=== PATIENT | female | born 1950 | race Caucasian/White ===

== ENCOUNTER → 2017-08-11 11:00 | Outpatient (CLI) | payer MEDICARE, SELFPAY ==
--- NOTE | 2017-08-11 | DI.MG.S_ITS ---
BILATERAL DIGITAL SCREENING MAMMOGRAM 3D/2D WITH CAD: 08/11/2017 CLINICAL: Routine screening. Family history of breast cancer. Comparison is made to exams dated: 11/26/2015 mammogram, 06/08/2011 mammogram, and 03/02/2010 mammogram - [facility]. There are scattered fibroglandular elements in both breasts. Current study was also evaluated with a Computer Aided Detection (CAD) system. No significant masses, calcifications, or other findings are seen in either breast. There has been no significant interval change. IMPRESSION: NEGATIVE There is no mammographic evidence of malignancy. A 1 year screening mammogram is recommended. This exam was interpreted at Station ID: [id number]. NOTE: For mammograms, a report in lay terms will be sent to the patient. Approximately 15% of breast malignancies will not be visualized mammographically. In the management of a palpable breast mass, a negative mammogram must not discourage biopsy of a clinically suspicious lesion. Electronically Signed By: Duke gallardo/kristen:08/11/2017 17:18:31 letter sent: Normal Exam ACR BI-RADS Category 1: Negative 3341F
== END ==
PROVIDERS: PCP Family Medicine; Visit Provider Family Medicine
DX: Z12.31 Encounter for screening mammogram for malignant neoplasm of breast (principal); Z80.3 Family history of malignant neoplasm of breast
CPT/HCPCS: 77063; 77067

== ENCOUNTER → 2017-09-13 10:36 | Outpatient (CLI) | payer MEDICARE, SELFPAY ==
--- NOTE | 2017-09-13 | DI.RAD.S_ITS ---
PROCEDURE: XR KNEE RT 3V INDICATIONS: BILATERAL KNEE PAIN TECHNIQUE: 3 views of the knee were acquired. COMPARISON: [facility], CR, XR KNEE LT 3V, 09/13/2017, 10:27. FINDINGS: Bones: No fractures or dislocations. No suspicious bony lesions. There is moderate medial and patellofemoral compartment narrowing. Prominent periventricular osteophytes are present at the knee. No erosions are present. This appears slightly more prominent when compared to the left side. Soft tissues: Moderate joint effusion. No suspicious soft tissue calcifications. IMPRESSION: Moderate effusion with medial and patellofemoral compartment narrowing consistent with arthritis. Dictated by: Laurie Bunch M.D. on 09/13/2017 at 17:21 Approved by: Laurie Bunch M.D. on 09/13/2017 at 17:22
--- NOTE | 2017-09-13 | DI.RAD.S_ITS ---
PROCEDURE: XR KNEE LT 3V INDICATIONS: BILATERAL KNEE PAIN TECHNIQUE: 3 views of the knee were acquired. COMPARISON: [facility], CR, XR KNEE RT 3V, 09/13/2017, 10:27. FINDINGS: Bones: No fractures or dislocations. No suspicious bony lesions. There is mild to moderate medial and patellofemoral compartment narrowing with periventricular osteophytes. This is overall less prominent when compared to the right. Soft tissues: Moderate joint effusion. No suspicious soft tissue calcifications. IMPRESSION: Moderate effusion with mild to moderate medial and patellofemoral compartment narrowing consistent with arthritis. Dictated by: Laurie Bunch M.D. on 09/13/2017 at 17:22 Approved by: Laurie Bunch M.D. on 09/13/2017 at 17:23
== END ==
PROVIDERS: PCP Family Medicine; Visit Provider Family Medicine
DX: M17.0 Bilateral primary osteoarthritis of knee (principal); M25.462 Effusion, left knee; M25.461 Effusion, right knee; M25.561 Pain in right knee; M25.562 Pain in left knee
CPT/HCPCS: 73562

== ENCOUNTER → 2019-03-23 16:17 | Outpatient (CLI) | payer MEDICARE, SELFPAY ==
--- NOTE | 2019-03-23 | DI.MG.S_ITS ---
BILATERAL DIGITAL SCREENING MAMMOGRAM 3D/2D WITH CAD: 03/23/2019 CLINICAL: Routine screening. Family history of breast cancer. Comparison is made to exams dated: 08/11/2017 mammogram, 11/26/2015 mammogram, and 06/08/2011 mammogram - [facility]. There are scattered fibroglandular elements in both breasts. Current study was also evaluated with a Computer Aided Detection (CAD) system. No significant masses, calcifications, or other findings are seen in either breast. There has been no significant interval change. IMPRESSION: NEGATIVE There is no mammographic evidence of malignancy. A 1 year screening mammogram is recommended. This exam was interpreted at Station ID: [id number]. NOTE: For mammograms, a report in lay terms will be sent to the patient. Approximately 15% of breast malignancies will not be visualized mammographically. In the management of a palpable breast mass, a negative mammogram must not discourage biopsy of a clinically suspicious lesion. Electronically Signed By: Duke gallardo/kristen:03/23/2019 17:10:43 letter sent: Normal Exam ACR BI-RADS Category 1: Negative 3341F
== END ==
PROVIDERS: PCP Family Medicine; Visit Provider Family Medicine
DX: Z12.31 Encounter for screening mammogram for malignant neoplasm of breast (principal); Z80.3 Family history of malignant neoplasm of breast
CPT/HCPCS: 77063; 77067

== ENCOUNTER → 2019-04-02 14:06 | Outpatient (CLI) | payer MEDICARE, SELFPAY | PROVIDERS: PCP Family Medicine; Referring Provider Family Medicine; Visit Provider Family Medicine | DX: Z78.0 Asymptomatic menopausal state (principal); Z90.722 Acquired absence of ovaries, bilateral | CPT/HCPCS: 77080 ==

== ENCOUNTER → 2020-03-21 14:15 | Outpatient (CLI) | payer MEDICARE, SELFPAY ==
[2020-03-21] MEDS: COVID-19 VACC #1, MRNA(MOD) 100 MCG/0.5 ML VIAL IM (14:26)
== END ==
PROVIDERS: PCP Family Medicine; Visit Provider Internal Medicine
DX: Z23 Encounter for immunization (principal)
CPT/HCPCS: 0011A; 91301

== ENCOUNTER → 2020-04-18 14:06 | Outpatient (CLI) | payer MEDICARE, SELFPAY ==
[2020-04-18] MEDS: COVID-19 VACC #2, MRNA(MOD) 100 MCG/0.5 ML VIAL IM (14:12)
== END ==
PROVIDERS: PCP Family Medicine; Visit Provider Internal Medicine
DX: Z23 Encounter for immunization (principal)
CPT/HCPCS: 0012A; 91301

== ENCOUNTER → 2020-08-01 16:43 | Outpatient (CLI) | payer MEDICARE, SELFPAY ==
--- NOTE | 2020-08-01 16:46 | DI.MG.S_ITS ---
BILATERAL DIGITAL SCREENING MAMMOGRAM 3D/2D WITH CAD: 08/01/2020 CLINICAL: Routine screening. Family history of breast cancer. Comparison is made to exams dated: 03/23/2019 mammogram, 08/11/2017 mammogram, and 11/26/2015 mammogram - [facility]. There are scattered fibroglandular elements in both breasts. Current study was also evaluated with a Computer Aided Detection (CAD) system. No significant masses, calcifications, or other findings are seen in either breast. There has been no significant interval change. IMPRESSION: NEGATIVE There is no mammographic evidence of malignancy. A 1 year screening mammogram is recommended. This exam was interpreted at Station ID: [id number]. NOTE: For mammograms, a report in lay terms will be sent to the patient. Approximately 15% of breast malignancies will not be visualized mammographically. In the management of a palpable breast mass, a negative mammogram must not discourage biopsy of a clinically suspicious lesion. Electronically Signed By: Ulises shepherd/kristen:08/01/2020 17:37:31 letter sent: Normal Exam ACR BI-RADS Category 1: Negative 3341F
== END ==
PROVIDERS: PCP Family Medicine; Referring Provider Family Medicine; Visit Provider Family Medicine
DX: Z12.31 Encounter for screening mammogram for malignant neoplasm of breast (principal); Z80.3 Family history of malignant neoplasm of breast
CPT/HCPCS: 77063; 77067

== ENCOUNTER 2021-01-08 09:45 | Outpatient (RCR) | payer MEDICARE, SELFPAY ==
--- NOTE | 2020-10-20 15:14 | PT.OIE ---
Current Diagnoses Unilateral primary osteoarthritis, right knee (10/20/20) Visit Care Team Role Provider Type Keeley Erickson PA-C Referring Provider Non-Staff Specialty: General Surgery Address: [address] [facility], [place], [address] Email: Annabel Fields MD Family Provider Physician Primary Care Provider Specialty: Family Practice Address: [address] [place] [address], [facility] [place], [address] Email: [email or web address] Attending Provider Specialty: Address: Phone: Fax: Email: Physical Therapy Initial Evaluation PT-OP-A Visit Information Start: 10/20/20 13:48 Freq: Status: Active Protocol: Document 10/20/20 14:43 HH (Rec: 10/20/20 15:13 HH [email or web address]) Out-Patient Physical Therapy Visit Information Visit Information Visit Type Initial Evaluation Visit Note attended session Medial knee compartment replacement 10/13/20 Visit Start Time 13:00 Visit Stop Time 13:45 Total Visit Minutes 45 Visit Number 03/11 Number of WAITER/WAITRESS DINING CAR Visits 0 Evaluation Information Evaluation Date 10/20/20 PT-OP-B Current Condition Start: 10/20/20 13:48 Freq: Status: Active Protocol: Document 10/20/20 14:43 HH (Rec: 10/20/20 15:13 HH [email or web address]) Current Condition History of Current Condition Onset Date 10/13/20 Current Complaints unicompartmental R knee replacement (medial), difficulty in walking History of Current Condition Ty is a 70yo female here with her today s/p POD 7 ( 10/13/20 )unicompartmental R knee replacement (medial) by jennifer Jean. Pt states she has been progressing well and able to walk around her house with a FWW. However, pt said she has not had any ROM / strengthening exercises given. She has been wearing compression leggings for swelling management. Pt is currently taking Aleve 3 times /day for pain control. Future Testing and Treatments Planned next f/u with surgeon 10/29/20 Current Functional Impairments (Reported) Functional Limitations- ADL's STS with staggered stance d/t limited knee flexion use of FWW for all mobility Functional Limitations- Other 2 STALIN from garage to home with railing on L and support in front. stair climbing with 2 rails ( step over pattern) PT-OP-C Subjective Start: 10/20/20 13:48 Freq: Status: Active Protocol: Document 10/20/20 14:43 HH (Rec: 10/20/20 15:13 HH [email or web address]) Patient Questionnaires Lower Extremity Functional Scale LEFS Score 40 LEFS Impairment 40 to 59% Impaired (Score 32- 47) OP-PT Pain Assessment Location R knee pain Pain Location Details R knee Intensity 3 Scale Used Numeric (0 - 10) Description Aching,Pressure Frequency Frequent Pain Aggravating Factors ADL's,Activity,Exercise, Standing,Walking,Stair Climbing Pain Alleviating Factors Cold,Inactivity,Lying Supine PT-OP-D Balance Start: 10/20/20 13:48 Freq: Status: Active Protocol: Document 10/20/20 14:43 HH (Rec: 10/20/20 15:13 [email or web address]) Balance Tests Single Limb Standing Single Limb- Right unable to test d/t pain PT-OP-G Mobility & Gait Start: 10/20/20 13:48 Freq: Status: Active Protocol: Document 10/20/20 14:43 HH (Rec: 10/20/20 15:13 [email or web address]) OP Mobility Evaluation Transfers Sit to Stand staggered stance, use of trunk forward lean to gain momentum and push off from walker OP Gait Assessment Assistive Devices Assistive Device Front Wheeled Walker Gait Deviations General Gait Pattern Antalgic,Decreased Stride Length,Decreased Feet Clearance,Step-to Gait Factors Limiting Gait Function Factors Limiting Gait Function Decreased Activity Tolerance, Decreased Strength, Incoordination,Limited Range of Motion,Pain,Poor Balance Comments Gait Comments mild R foot mill turner noted. lack of TKE during R stance phase Stair Climbing Evaluation Technique/Endurance Stair Climbing Direction Ascend and Descend Stair Climbing Technique Step Over Step Number of Steps Climbed 4 Stair Climbing Set # Repetitions (reps) 2 Comments Stair Climbing Comments pt primiarlly pulled from B handrails with a step over pattern. Unstable stance phase noted on R LE. Pt led with L to ascend and descend. PT-OP-K Range of Motion Start: 10/20/20 13:48 Freq: Status: Active Protocol: Document 10/20/20 14:43 HH (Rec: 10/20/20 15:13 [email or web address]) Knee Goniometric Range of Motion Knee Right Knee ROM WFL No Patient Position Supine Flexion Active (degrees) 63 Flexion Passive (degrees) 67 Extension Active (degrees) 10 Comments c/o tightness at incision site during knee flexion Left Knee ROM WFL Yes Flexion Active (degrees) 126 Extension Active (degrees) 0 Knee ROM Limitations Knee ROM Limitations Soft Tissue Tightness,Muscle Weakness,Muscle Tone,Pain, Swelling PT-OP-M Strength Start: 10/20/20 13:48 Freq: Status: Active Protocol: Document 10/20/20 14:43 HH (Rec: 10/20/20 15:13 [email or web address]) Knee Strength Knee Manual Muscle Testing Right Flexion (S2) 3+ Fair+ Extension (L3) 3+ Fair+ Left Flexion (S2) 5 Normal Extension (L3) 5 Normal PT-OP-Q Treatments Start: 10/20/20 13:48 Freq: Status: Active Protocol: Document 10/20/20 14:43 HH (Rec: 10/20/20 15:13 [email or web address]) Therapeutic Exercises Supine Exercises TKE Side right Equipment Used towel under ankle Reps/Minutes 3 sec hold x10 Comments for HEP Sitting Exercises heel slide Side right Equipment Used towel under ankle Reps/Minutes 10 x1f Comments for HEP, up to 70 degrees Self-Care/Home Management Treatment Education Patient Education Body Mechanics,Fall Risk,Home Exercise Program,Joint Protection,Pain Management, Posture,Safety Other Education provided post op knee replacement rehab booklet including ther-ex and precautions. Educated pt to focus on decreasing swelling, restoring knee ROM in order to normalize her gait and functionaly mobility. PT-OP-T Assessment and Plan Start: 10/20/20 13:48 Freq: Status: Active Protocol: Document 10/20/20 14:43 HH (Rec: 10/20/20 15:13 [email or web address]) Physical Therapy Assessment Rehab Potential Rehabilitation Potential Excellent Evaluation Complexity Number of Personal Factors/Comorbidities 1-2 Number of Body Systems Impaired 1-2 Clinical Presentation at Evaluation Stable Impairments Impairments Activity Tolerance,Balance, Functional Activities, Functional Mobility,Gait,Pain, Posture,ROM,Soft Tissue Mobility,Strength,Transfers Goals balance Impairment pt is unable to stand on 1 LE Short Term Goal (STG) pt will be able to show improved balance and strength to amb with sPC. STG Duration 2 weeks Intermediate Goal (LTG) pt will be able to show improved balance and strength to amb without AD and compensation sign LTG Duration 8 weeks ROM Impairment pt shows very limited knee ROM 10- 65 only Short Term Goal (STG) pt will show increase R knee AROM to <5 degrees and > 100 degrees which allows her to stand up with even steps. STG Duration 4 weeks Intermediate Goal (LTG) pt will show increase R knee AROM to <5 degrees and > 120 degrees which allows her to climb stairs with step over pattern LTG Duration 8 weeks LEFS Impairment pt scores 40 on LEFS Short Term Goal (STG) pt will show improved mobility and strength to be able to score <30 on LEFs STG Duration [address] [place] [address] Judge Goal (LTG) pt will show improved mobility and strength to be able to score <20 on LEFs LTG Duration 8 weeks Assessment Summary Assessment Ty is a 70 yo female s/p POD7 ( 10/13/20 ) unicompartmental R knee replacement (medial) by jennifer Jean. Pt came in today with FWW and appeared doing well. However, pt was not given any ROM ex and her knee AROM is only = 10 to 65degrees. Provided post op booklet with HEP and spent time educating the importance of restoring her ROM at this point. Also spent time on teaching her step to pattern and lead with non surgical leg to ascend and surgical leg to descend for stair climbing. Pt shows good understanding and will review HEP next visit . Pt will benefit from skilled therapy to restore her knee ROM, gait mechanics and overall functional mobility and strength. Physical Therapy Plan Frequency and Duration Frequency of Treatment 2x/Week Duration of Treatment 8 weeks Plan of Care Start Date 10/20/20 Plan of Care End Date 12/19/20 Therapeutic Interventions Therapeutic Interventions Aquatic Therapy,Balance Training,Gait Training,Home Exercise Program,Joint Mobilizations,Manual Therapy, Neuromuscular Re-education, Patient/Caregiver Education, Self-Care/Home Management,Soft Tissue Mobilization,Taping, Therapeutic Activities, Therapeutic Exercises Modalities Cold Pack/Ice Massage,Electric Stimulation,Hot Packs, Infrared Therapy,Ultrasound Next Visit Focus/Plan Next Note Type Treatment Note Next Visit Plan review HEP swelling STM passive TKE, flexion STS
--- NOTE | 2020-10-20 15:15 | PT.OPPOC ---
Physical, Occupational & Speech Therapy At [facility] Current Diagnoses Unilateral primary osteoarthritis, right knee (10/20/20) Visit Care Team Role Provider Type Keeley Erickson PA-C Referring Provider Non-Staff Specialty: General Surgery Address: [address], [place], [address] Email: Annabel Fields MD Family Provider Physician Primary Care Provider Specialty: Family Practice Address: [address] [place] [address], [facility] [place], [address] Email: Attending Provider Specialty: Address: Phone: Fax: Email: Plan Of Care PT-OP-T Assessment and Plan Start: 10/20/20 13:48 Freq: Status: Active Protocol: Document 10/20/20 14:43 HH (Rec: 10/20/20 15:13 HH [email or web address]) Physical Therapy Assessment Rehab Potential Rehabilitation Potential Excellent Evaluation Complexity Number of Personal Factors/Comorbidities 1-2 Number of Body Systems Impaired 1-2 Clinical Presentation at Evaluation Stable Impairments Impairments Activity Tolerance,Balance, Functional Activities, Functional Mobility,Gait,Pain, Posture,ROM,Soft Tissue Mobility,Strength,Transfers Goals balance Impairment pt is unable to stand on 1 LE Short Term Goal (STG) pt will be able to show improved balance and strength to amb with sPC. STG Duration 2 weeks Intermediate Goal (LTG) pt will be able to show improved balance and strength to amb without AD and compensation sign LTG Duration 8 weeks ROM Impairment pt shows very limited knee ROM 10- 65 only Short Term Goal (STG) pt will show increase R knee AROM to <5 degrees and > 100 degrees which allows her to stand up with even steps. STG Duration 4 weeks Pacu Rn Goal (LTG) pt will show increase R knee AROM to <5 degrees and > 120 degrees which allows her to climb stairs with step over pattern LTG Duration 8 weeks LEFS Impairment pt scores 40 on LEFS Short Term Goal (STG) pt will show improved mobility and strength to be able to score <30 on LEFs STG Duration 4 weeks Pacu Rn Goal (LTG) pt will show improved mobility and strength to be able to score <20 on LEFs LTG Duration 8 weeks Assessment Summary Assessment Ty is a 70 yo female s/p POD7 ( 10/13/20 ) unicompartmental R knee replacement (medial) by jennifer Jean. Pt came in today with FWW and appeared doing well. However, pt was not given any ROM ex and her knee AROM is only = 10 to 65degrees. Provided post op booklet with HEP and spent time educating the importance of restoring her ROM at this point. Also spent time on teaching her step to pattern and lead with non surgical leg to ascend and surgical leg to descend for stair climbing. Pt shows good understanding and will review HEP next visit . Pt will benefit from skilled therapy to restore her knee ROM, gait mechanics and overall functional mobility and strength. Physical Therapy Plan Frequency and Duration Frequency of Treatment 2x/Week Duration of Treatment 8 weeks Plan of Care Start Date 10/20/20 Plan of Care End Date 12/19/20 Therapeutic Interventions Therapeutic Interventions Aquatic Therapy,Balance Training,Gait Training,Home Exercise Program,Joint Mobilizations,Manual Therapy, Neuromuscular Re-education, Patient/Caregiver Education, Self-Care/Home Management,Soft Tissue Mobilization,Taping, Therapeutic Activities, Therapeutic Exercises Modalities Cold Pack/Ice Massage,Electric Stimulation,Hot Packs, Infrared Therapy,Ultrasound Next Visit Focus/Plan Next Note Type Treatment Note Next Visit Plan review HEP swelling STM passive TKE, flexion STS Plan of Care Dates Plan of Care Start Date 10/20/20 Plan of Care End Date 12/19/20 Electronically Signed by: Jb Warren, PT 10/20/20 [id number] Please Sign and Return: I have reviewed this Plan of Care and certify that the skilled therapy services above are required to meet the patient?s needs. Physician Signature Date Printed Name and Credentials Clinical Instructor Signature Printed Name and Credentials
--- NOTE | 2020-10-24 13:45 | PT.OTN ---
Current Diagnoses Unilateral primary osteoarthritis, right knee (10/24/20) Physical Therapy Treatment Note PT-OP-A Visit Information Start: 10/20/20 13:48 Freq: Status: Active Protocol: Document 10/24/20 12:56 HH (Rec: 10/24/20 13:45 HH [id number]) Out-Patient Physical Therapy Visit Information Visit Information Visit Type Treatment Note Visit Note next appt with PA 10/29/20 Visit Start Time 13:00 Visit Stop Time 13:44 Total Visit Minutes 44 Visit Number 04/11 Number of CALL OR CONTACT CENTRE COACH Visits 0 PT-OP-B Current Condition Start: 10/20/20 13:48 Freq: Status: Active Protocol: Document 10/20/20 14:43 HH (Rec: 10/20/20 15:13 HH [email or web address]) Current Condition History of Current Condition Onset Date 10/13/20 Current Complaints unicompartmental R knee replacement (medial), difficulty in walking History of Current Condition Ty is a 70yo female here with her today s/p POD 7 ( 10/13/20 )unicompartmental R knee replacement (medial) by jennifer Jean. Pt states she has been progressing well and able to walk around her house with a FWW. However, pt said she has not had any ROM / strengthening exercises given. She has been wearing compression leggings for swelling management. Pt is currently taking Aleve 3 times /day for pain control. Future Testing and Treatments Planned next f/u with surgeon 10/29/20 Current Functional Impairments (Reported) Functional Limitations- ADL's STS with staggered stance d/t limited knee flexion use of FWW for all mobility Functional Limitations- Other 2 STALIN from garage to home with railing on L and support in front. stair climbing with 2 rails ( step over pattern) PT-OP-C Subjective Start: 10/20/20 13:48 Freq: Status: Active Protocol: Document 10/24/20 12:56 HH (Rec: 10/24/20 13:45 HH [id number]) OP-PT Subjective Patient Comments Patient Comments Im doing better and i was able to climb stairs with the step to pattern safely. PT-OP-D Balance Start: 10/20/20 13:48 Freq: Status: Active Protocol: Document 10/20/20 14:43 HH (Rec: 10/20/20 15:13 [email or web address]) Balance Tests Single Limb Standing Single Limb- Right unable to test d/t pain PT-OP-G Mobility & Gait Start: 10/20/20 13:48 Freq: Status: Active Protocol: Document 10/20/20 14:43 (Rec: 10/20/20 15:13 [email or web address]) OP Mobility Evaluation Transfers Sit to Stand staggered stance, use of trunk forward lean to gain momentum and push off from walker OP Gait Assessment Assistive Devices Assistive Device Front Wheeled Walker Gait Deviations General Gait Pattern Antalgic,Decreased Stride Length,Decreased Feet Clearance,Step-to Gait Factors Limiting Gait Function Factors Limiting Gait Function Decreased Activity Tolerance, Decreased Strength, Incoordination,Limited Range of Motion,Pain,Poor Balance Comments Gait Comments 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 lack of TKE during R stance phase Stair Climbing Evaluation Technique/Endurance Stair Climbing Direction Ascend and Descend Stair Climbing Technique Step Over Step Number of Steps Climbed 4 Stair Climbing Set # Repetitions (reps) 2 Comments Stair Climbing Comments pt primiarlly pulled from B handrails with a step over pattern. Unstable stance phase noted on R LE. Pt led with L to ascend and descend. PT-OP-K Range of Motion Start: 10/20/20 13:48 Freq: Status: Active Protocol: Document 10/20/20 14:43 (Rec: 10/20/20 15:13 [email or web address]) Knee Goniometric Range of Motion Knee Right Knee ROM WFL No Patient Position Supine Flexion Active (degrees) 63 Flexion Passive (degrees) 67 Extension Active (degrees) 10 Comments c/o tightness at incision site during knee flexion Left Knee ROM WFL Yes Flexion Active (degrees) 126 Extension Active (degrees) 0 Knee ROM Limitations Knee ROM Limitations Soft Tissue Tightness,Muscle Weakness,Muscle Tone,Pain, Swelling PT-OP-M Strength Start: 10/20/20 13:48 Freq: Status: Active Protocol: Document 10/20/20 14:43 (Rec: 10/20/20 15:13 [email or web address]) Knee Strength Knee Manual Muscle Testing Right Flexion (S2) 3+ Fair+ Extension (L3) 3+ Fair+ Left Flexion (S2) 5 Normal Extension (L3) 5 Normal PT-OP-Q Treatments Start: 10/20/20 13:48 Freq: Status: Active Protocol: Document 10/24/20 12:56 HH (Rec: 10/24/20 13:45 [id number]) Cardio Equipment Recumbent Stepper (Sci-Fit) Duration (Minutes) 5 Resistance 1 Seat Position 12 Therapeutic Exercises Supine Exercises heel slide Supine Exercise Name with belt Side right Reps/Minutes 3 sec hold x8 Comments for HEP PROM Supine Exercise Name PT assisted for flexion and extension TKE Side right Equipment Used towel under ankle Reps/Minutes 3 sec hold x10 Comments for HEP Sitting Exercises heel slide Sitting Exercise Name skateboard Side right Equipment Used slider Reps/Minutes 10 x1f Comments for HEP, up to 90 degrees Manual Therapy Treatment Soft Tissue Mobilization swelling Mobilization Type Manual Lymphatic Drainage Intensity/Depth Moderate Body Position Hooklying Comments upward stroke upper thigh first then calf PT-OP-T Assessment and Plan Start: 10/20/20 13:48 Freq: Status: Active Protocol: Document 10/24/20 12:56 (Rec: 10/24/20 13:45 [id number]) Physical Therapy Assessment Goals balance Impairment pt is unable to stand on 1 LE Short Term Goal (STG) pt will be able to show improved balance and strength to amb with sPC. STG Duration 2 weeks Therapy Coordinator Goal (LTG) pt will be able to show improved balance and strength to amb without AD and compensation sign LTG Duration 8 weeks ROM Impairment pt shows very limited knee ROM 10- 65 only Short Term Goal (STG) pt will show increase R knee AROM to <5 degrees and > 100 degrees which allows her to stand up with even steps. STG Duration 4 weeks Usp Goal (LTG) pt will show increase R knee AROM to <5 degrees and > 120 degrees which allows her to climb stairs with step over pattern LTG Duration 8 weeks LEFS Impairment pt scores 40 on LEFS Short Term Goal (STG) pt will show improved mobility and strength to be able to score <30 on LEFs STG Duration 4 weeks Therapy Coordinator Goal (LTG) pt will show improved mobility and strength to be able to score <20 on LEFs LTG Duration 8 weeks Assessment Summary Assessment pt shows improved R knee ROM up to 90 degrees in seated. Added supine heel slide with belt. She was able to rodrigo stepper at postiion 12 as well . Physical Therapy Plan Frequency and Duration Frequency of Treatment 2x/Week Duration of Treatment 8 weeks Plan of Care Start Date 10/20/20 Plan of Care End Date 12/19/20 Therapeutic Interventions Therapeutic Interventions Aquatic Therapy,Balance Training,Gait Training,Home Exercise Program,Joint Mobilizations,Manual Therapy, Neuromuscular Re-education, Patient/Caregiver Education, Self-Care/Home Management,Soft Tissue Mobilization,Taping, Therapeutic Activities, Therapeutic Exercises Modalities Cold Pack/Ice Massage,Electric Stimulation,Hot Packs, Infrared Therapy,Ultrasound Next Visit Focus/Plan Next Note Type Treatment Note Next Visit Plan review HEP swelling STM passive TKE, flexion STS
--- NOTE | 2020-10-28 15:18 | PT.OTN ---
Current Diagnoses Unilateral primary osteoarthritis, right knee (10/28/20) Physical Therapy Treatment Note PT-OP-A Visit Information Start: 10/20/20 13:48 Freq: Status: Active Protocol: Document 10/28/20 14:38 HH (Rec: 10/28/20 15:18 [id number]) Out-Patient Physical Therapy Visit Information Visit Information Visit Type Treatment Note Visit Note next appt with PA 10/29/20 Visit Start Time 14:34 Visit Stop Time 15:15 Total Visit Minutes 41 Visit Number 05/09 Number of FLOAT REMOVER Visits 0 PT-OP-B Current Condition Start: 10/20/20 13:48 Freq: Status: Active Protocol: Document 10/20/20 14:43 HH (Rec: 10/20/20 15:13 HH [email or web address]) Current Condition History of Current Condition Onset Date 10/13/20 Current Complaints unicompartmental R knee replacement (medial), difficulty in walking History of Current Condition Ty is a 70yo female here with her today s/p POD 7 ( 10/13/20 )unicompartmental R knee replacement (medial) by jennifer Jean. Pt states she has been progressing well and able to walk around her house with a FWW. However, pt said she has not had any ROM / strengthening exercises given. She has been wearing compression leggings for swelling management. Pt is currently taking Aleve 3 times /day for pain control. Future Testing and Treatments Planned next f/u with surgeon 10/29/20 Current Functional Impairments (Reported) Functional Limitations- ADL's STS with staggered stance d/t limited knee flexion use of FWW for all mobility Functional Limitations- Other 2 STALIN from garage to home with railing on L and support in front. stair climbing with 2 rails ( step over pattern) PT-OP-C Subjective Start: 10/20/20 13:48 Freq: Status: Active Protocol: Document 10/28/20 14:38 HH (Rec: 10/28/20 15:18 HH [id number]) OP-PT Subjective Patient Comments Patient Comments Im doing better again. I was able to walk without the walker at home. I started really feeling better since yesterday. My swelling has gone down and not as hot for the skin. Patient Reported Progress Improving PT-OP-D Balance Start: 10/20/20 13:48 Freq: Status: Active Protocol: Document 10/20/20 14:43 HH (Rec: 10/20/20 15:13 [email or web address]) Balance Tests Single Limb Standing Single Limb- Right unable to test d/t pain PT-OP-G Mobility & Gait Start: 10/20/20 13:48 Freq: Status: Active Protocol: Document 10/20/20 14:43 HH (Rec: 10/20/20 15:13 [email or web address]) OP Mobility Evaluation Transfers Sit to Stand staggered stance, use of trunk forward lean to gain momentum and push off from walker OP Gait Assessment Assistive Devices Assistive Device Front Wheeled Walker Gait Deviations General Gait Pattern Antalgic,Decreased Stride Length,Decreased Feet Clearance,Step-to Gait Factors Limiting Gait Function Factors Limiting Gait Function Decreased Activity Tolerance, Decreased Strength, Incoordination,Limited Range of Motion,Pain,Poor Balance Comments Gait Comments mild R foot jewel bearing turner noted. lack of TKE during R stance phase Stair Climbing Evaluation Technique/Endurance Stair Climbing Direction Ascend and Descend Stair Climbing Technique Step Over Step Number of Steps Climbed 4 Stair Climbing Set # Repetitions (reps) 2 Comments Stair Climbing Comments pt primiarlly pulled from B handrails with a step over pattern. Unstable stance phase noted on R LE. Pt led with L to ascend and descend. PT-OP-K Range of Motion Start: 10/20/20 13:48 Freq: Status: Active Protocol: Document 10/20/20 14:43 HH (Rec: 10/20/20 15:13 [email or web address]) Knee Goniometric Range of Motion Knee Right Knee ROM WFL No Patient Position Supine Flexion Active (degrees) 63 Flexion Passive (degrees) 67 Extension Active (degrees) 10 Comments c/o tightness at incision site during knee flexion Left Knee ROM WFL Yes Flexion Active (degrees) 126 Extension Active (degrees) 0 Knee ROM Limitations Knee ROM Limitations Soft Tissue Tightness,Muscle Weakness,Muscle Tone,Pain, Swelling PT-OP-M Strength Start: 10/20/20 13:48 Freq: Status: Active Protocol: Document 10/20/20 14:43 HH (Rec: 10/20/20 15:13 [email or web address]) Knee Strength Knee Manual Muscle Testing Right Flexion (S2) 3+ Fair+ Extension (L3) 3+ Fair+ Left Flexion (S2) 5 Normal Extension (L3) 5 Normal PT-OP-Q Treatments Start: 10/20/20 13:48 Freq: Status: Active Protocol: Document 10/28/20 14:38 (Rec: 10/28/20 15:18 [id number]) Cardio Equipment Recumbent Stepper (Sci-Fit) Duration (Minutes) 5 Resistance 1 Seat Position 12 Therapeutic Exercises Supine Exercises SAQ Side right Equipment Used bolster underneath knee Reps/Minutes 10 x2 PROM Supine Exercise Name PT assisted for flexion and extension TKE Side right Equipment Used half foam roller Reps/Minutes 2 sec hold x10 Sitting Exercises heel slide Sitting Exercise Name skateboard Side right Equipment Used slider Reps/Minutes 10 x1f Comments for HEP, up to 90 degrees Standing Exercises STS Standing Exercise Name chair in front of pt Side bilateral Reps/Minutes 5 x 2 Comments from 20 chair, cues on even steps Gait Training Gait Activity SPC Level of Assistance CGA Surface ground level Distance/Duration 20 ft x 4 Comments cues on 2 point step over pattern. pt shows improved antalgic gait sign. Manual Therapy Treatment Soft Tissue Mobilization swelling Mobilization Type Manual Lymphatic Drainage Intensity/Depth Moderate Body Position Hooklying Comments upward stroke upper thigh first then calf PT-OP-T Assessment and Plan Start: 10/20/20 13:48 Freq: Status: Active Protocol: Document 10/28/20 14:38 (Rec: 10/28/20 15:18 [id number]) Physical Therapy Assessment Goals balance Impairment pt is unable to stand on 1 LE Short Term Goal (STG) pt will be able to show improved balance and strength to amb with sPC. STG Duration 2 weeks Mcc Goal (LTG) pt will be able to show improved balance and strength to amb without AD and compensation sign LTG Duration 8 weeks ROM Impairment pt shows very limited knee ROM 10- 65 only Short Term Goal (STG) pt will show increase R knee AROM to <5 degrees and > 100 degrees which allows her to stand up with even steps. STG Duration 4 weeks Mcc Goal (LTG) pt will show increase R knee AROM to <5 degrees and > 120 degrees which allows her to climb stairs with step over pattern LTG Duration 8 weeks LEFS Impairment pt scores 40 on LEFS Short Term Goal (STG) pt will show improved mobility and strength to be able to score <30 on LEFs STG Duration 4 weeks Chili Pepper Grinder Goal (LTG) pt will show improved mobility and strength to be able to score <20 on LEFs LTG Duration 8 weeks Assessment Summary Assessment Pt came in without FWW today with significant antalgic sign . Reviewed HEP with her and she needed cues with supine heel slide. Added STS and gait training with SPC. Recommended her to use SPC for mobility at this point to improve her gait quality Physical Therapy Plan Frequency and Duration Frequency of Treatment 2x/Week Duration of Treatment 8 weeks Plan of Care Start Date 10/20/20 Plan of Care End Date 12/19/20 Therapeutic Interventions Therapeutic Interventions Aquatic Therapy,Balance Training,Gait Training,Home Exercise Program,Joint Mobilizations,Manual Therapy, Neuromuscular Re-education, Patient/Caregiver Education, Self-Care/Home Management,Soft Tissue Mobilization,Taping, Therapeutic Activities, Therapeutic Exercises Modalities Cold Pack/Ice Massage,Electric Stimulation,Hot Packs, Infrared Therapy,Ultrasound Next Visit Focus/Plan Next Note Type Treatment Note Next Visit Plan review HEP swelling STM passive TKE, flexion STS
--- NOTE | 2020-10-31 11:55 | PT.OTN ---
Current Diagnoses Unilateral primary osteoarthritis, right knee (10/31/20) Physical Therapy Treatment Note PT-OP-A Visit Information Start: 10/20/20 13:48 Freq: Status: Active Protocol: Document 10/31/20 10:58 HH (Rec: 10/31/20 11:55 HH [id number]) Out-Patient Physical Therapy Visit Information Visit Information Visit Type Treatment Note Visit Note next appt with surgeon in Nov Visit Start Time 11:10 Visit Stop Time 11:50 Total Visit Minutes 40 Visit Number 06/09 Number of MANAGER TELECOM Visits 0 PT-OP-B Current Condition Start: 10/20/20 13:48 Freq: Status: Active Protocol: Document 10/20/20 14:43 HH (Rec: 10/20/20 15:13 HH [email or web address]) Current Condition History of Current Condition Onset Date 10/13/20 Current Complaints unicompartmental R knee replacement (medial), difficulty in walking History of Current Condition Ty is a 70yo female here with her today s/p POD 7 ( 10/13/20 )unicompartmental R knee replacement (medial) by jennifer Jean. Pt states she has been progressing well and able to walk around her house with a FWW. However, pt said she has not had any ROM / strengthening exercises given. She has been wearing compression leggings for swelling management. Pt is currently taking Aleve 3 times /day for pain control. Future Testing and Treatments Planned next f/u with surgeon 10/29/20 Current Functional Impairments (Reported) Functional Limitations- ADL's STS with staggered stance d/t limited knee flexion use of FWW for all mobility Functional Limitations- Other 2 STALIN from garage to home with railing on L and support in front. stair climbing with 2 rails ( step over pattern) PT-OP-C Subjective Start: 10/20/20 13:48 Freq: Status: Active Protocol: Document 10/31/20 10:58 HH (Rec: 10/31/20 11:55 HH [id number]) OP-PT Subjective Patient Comments Patient Comments My PA is pleased with the progress. My knee can bend >90 degrees. Im doing prtty good so far. Patient Reported Progress Improving PT-OP-D Balance Start: 10/20/20 13:48 Freq: Status: Active Protocol: Document 10/20/20 14:43 HH (Rec: 10/20/20 15:13 [email or web address]) Balance Tests Single Limb Standing Single Limb- Right unable to test d/t pain PT-OP-G Mobility & Gait Start: 10/20/20 13:48 Freq: Status: Active Protocol: Document 10/20/20 14:43 HH (Rec: 10/20/20 15:13 HH [email or web address]) OP Mobility Evaluation Transfers Sit to Stand staggered stance, use of trunk forward lean to gain momentum and push off from walker OP Gait Assessment Assistive Devices Assistive Device Front Wheeled Walker Gait Deviations General Gait Pattern Antalgic,Decreased Stride Length,Decreased Feet Clearance,Step-to Gait Factors Limiting Gait Function Factors Limiting Gait Function Decreased Activity Tolerance, Decreased Strength, Incoordination,Limited Range of Motion,Pain,Poor Balance Comments Gait Comments mild R foot route returner noted. lack of TKE during R stance phase Stair Climbing Evaluation Technique/Endurance Stair Climbing Direction Ascend and Descend Stair Climbing Technique Step Over Step Number of Steps Climbed 4 Stair Climbing Set # Repetitions (reps) 2 Comments Stair Climbing Comments pt primiarlly pulled from B handrails with a step over pattern. Unstable stance phase noted on R LE. Pt led with L to ascend and descend. PT-OP-K Range of Motion Start: 10/20/20 13:48 Freq: Status: Active Protocol: Document 10/20/20 14:43 HH (Rec: 10/20/20 15:13 [email or web address]) Knee Goniometric Range of Motion Knee Right Knee ROM WFL No Patient Position Supine Flexion Active (degrees) 63 Flexion Passive (degrees) 67 Extension Active (degrees) 10 Comments c/o tightness at incision site during knee flexion Left Knee ROM WFL Yes Flexion Active (degrees) 126 Extension Active (degrees) 0 Knee ROM Limitations Knee ROM Limitations Soft Tissue Tightness,Muscle Weakness,Muscle Tone,Pain, Swelling PT-OP-M Strength Start: 10/20/20 13:48 Freq: Status: Active Protocol: Document 10/20/20 14:43 HH (Rec: 10/20/20 15:13 [email or web address]) Knee Strength Knee Manual Muscle Testing Right Flexion (S2) 3+ Fair+ Extension (L3) 3+ Fair+ Left Flexion (S2) 5 Normal Extension (L3) 5 Normal PT-OP-Q Treatments Start: 10/20/20 13:48 Freq: Status: Active Protocol: Document 10/31/20 10:58 (Rec: 10/31/20 11:55 [id number]) Cardio Equipment Recumbent Stepper (Sci-Fit) Duration (Minutes) 5 Resistance 1 Seat Position 10 Recumbent Bicycle Resistance 0 Seat Position 7 Other able to do full cycle twice but painful, stay with 75% Therapeutic Exercises Supine Exercises PROM Supine Exercise Name PT assisted for flexion and extension Comments hamstring stretch as well TKE Side right Equipment Used half foam roller Reps/Minutes 2 sec hold x10 Comments with PT assistance Sitting Exercises LAQ Side right Reps/Minutes 10 x2 Comments for HEP heel slide Sitting Exercise Name slider fleixon to extension Side right Equipment Used slider Reps/Minutes 10 x2 Comments for HEP, up to 95 degrees Standing Exercises STS Standing Exercise Name chair in front of pt Side bilateral Reps/Minutes 5 x 2 Comments from 20 chair, cues on even steps Manual Therapy Treatment Soft Tissue Mobilization swelling Mobilization Type Manual Lymphatic Drainage Intensity/Depth Moderate Body Position Hooklying Comments upward stroke upper thigh first then calf PT-OP-T Assessment and Plan Start: 10/20/20 13:48 Freq: Status: Active Protocol: Document 10/31/20 10:58 (Rec: 10/31/20 11:55 [id number]) Physical Therapy Assessment Goals balance Impairment pt is unable to stand on 1 LE Short Term Goal (STG) pt will be able to show improved balance and strength to amb with sPC. STG Duration 2 weeks Aquaculture And Fisheries Professor Goal (LTG) pt will be able to show improved balance and strength to amb without AD and compensation sign LTG Duration 8 weeks ROM Impairment pt shows very limited knee ROM 10- 65 only Short Term Goal (STG) pt will show increase R knee AROM to <5 degrees and > 100 degrees which allows her to stand up with even steps. STG Duration 4 weeks Aquaculture And Fisheries Professor Goal (LTG) pt will show increase R knee AROM to <5 degrees and > 120 degrees which allows her to climb stairs with step over pattern LTG Duration 8 weeks LEFS Impairment pt scores 40 on LEFS Short Term Goal (STG) pt will show improved mobility and strength to be able to score <30 on LEFs STG Duration 4 weeks Aquaculture And Fisheries Professor Goal (LTG) pt will show improved mobility and strength to be able to score <20 on LEFs LTG Duration 8 weeks Assessment Summary Assessment This session focused on stretching and ROM ex and she rodrigo well. She was able to reach full cycle on recumbent bike but with pain. Her gait is improving with less antalgic sign. Will start focuing on gait without AD next visit. Physical Therapy Plan Frequency and Duration Frequency of Treatment 2x/Week Duration of Treatment 8 weeks Plan of Care Start Date 10/20/20 Plan of Care End Date 12/19/20 Therapeutic Interventions Therapeutic Interventions Aquatic Therapy,Balance Training,Gait Training,Home Exercise Program,Joint Mobilizations,Manual Therapy, Neuromuscular Re-education, Patient/Caregiver Education, Self-Care/Home Management,Soft Tissue Mobilization,Taping, Therapeutic Activities, Therapeutic Exercises Modalities Cold Pack/Ice Massage,Electric Stimulation,Hot Packs, Infrared Therapy,Ultrasound Next Visit Focus/Plan Next Note Type Treatment Note Next Visit Plan review HEP swelling STM passive TKE, flexion STS
--- NOTE | 2020-11-04 15:40 | PT.OTN ---
Current Diagnoses Unilateral primary osteoarthritis, right knee (11/04/20) Physical Therapy Treatment Note PT-OP-A Visit Information Start: 10/20/20 13:48 Freq: Status: Active Protocol: Document 11/04/20 14:34 [facility] (Rec: 11/04/20 15:26 [facility] [id number]) Out-Patient Physical Therapy Visit Information Visit Information Visit Type Treatment Note Visit Start Time 14:35 Visit Stop Time 15:15 Total Visit Minutes 40 Visit Number 07/09 PT-OP-B Current Condition Start: 10/20/20 13:48 Freq: Status: Active Protocol: Document 10/20/20 14:43 [facility] (Rec: 10/20/20 15:13 HH [email or web address]) Current Condition History of Current Condition Onset Date 10/13/20 Current Complaints unicompartmental R knee replacement (medial), difficulty in walking History of Current Condition Ty is a 70yo female here with her today s/p POD 7 ( 10/13/20 )unicompartmental R knee replacement (medial) by jennifer Jean. Pt states she has been progressing well and able to walk around her house with a FWW. However, pt said she has not had any ROM / strengthening exercises given. She has been wearing compression leggings for swelling management. Pt is currently taking Aleve 3 times /day for pain control. Future Testing and Treatments Planned next f/u with surgeon 10/29/20 Current Functional Impairments (Reported) Functional Limitations- ADL's STS with staggered stance d/t limited knee flexion use of FWW for all mobility Functional Limitations- Other 2 STALIN from garage to home with railing on L and support in front. stair climbing with 2 rails ( step over pattern) PT-OP-C Subjective Start: 10/20/20 13:48 Freq: Status: Active Protocol: Document 11/04/20 14:34 [facility] (Rec: 11/04/20 15:26 [facility] [id number]) OP-PT Subjective Patient Comments Patient Comments pt reports her pain is much better, the full knee bending is still the hardest thing to do. She has a low toilet at home and she is working on not grabbing the sink to get up. Patient Reported Progress Improving PT-OP-D Balance Start: 10/20/20 13:48 Freq: Status: Active Protocol: Document 10/20/20 14:43 [facility] (Rec: 10/20/20 15:13 HH [email or web address]) Balance Tests Single Limb Standing Single Limb- Right unable to test d/t pain PT-OP-G Mobility & Gait Start: 10/20/20 13:48 Freq: Status: Active Protocol: Document 10/20/20 14:43 [facility] (Rec: 10/20/20 15:13 HH [email or web address]) OP Mobility Evaluation Transfers Sit to Stand staggered stance, use of trunk forward lean to gain momentum and push off from walker OP Gait Assessment Assistive Devices Assistive Device Front Wheeled Walker Gait Deviations General Gait Pattern Antalgic,Decreased Stride Length,Decreased Feet Clearance,Step-to Gait Factors Limiting Gait Function Factors Limiting Gait Function Decreased Activity Tolerance, Decreased Strength, Incoordination,Limited Range of Motion,Pain,Poor Balance Comments Gait Comments mild R foot turner off noted. lack of TKE during R stance phase Stair Climbing Evaluation Technique/Endurance Stair Climbing Direction Ascend and Descend Stair Climbing Technique Step Over Step Number of Steps Climbed 4 Stair Climbing Set # Repetitions (reps) 2 Comments Stair Climbing Comments pt primiarlly pulled from B handrails with a step over pattern. Unstable stance phase noted on R LE. Pt led with L to ascend and descend. PT-OP-K Range of Motion Start: 10/20/20 13:48 Freq: Status: Active Protocol: Document 10/20/20 14:43 [facility] (Rec: 10/20/20 15:13 [email or web address]) Knee Goniometric Range of Motion Knee Right Knee ROM WFL No Patient Position Supine Flexion Active (degrees) 63 Flexion Passive (degrees) 67 Extension Active (degrees) 10 Comments c/o tightness at incision site during knee flexion Left Knee ROM WFL Yes Flexion Active (degrees) 126 Extension Active (degrees) 0 Knee ROM Limitations Knee ROM Limitations Soft Tissue Tightness,Muscle Weakness,Muscle Tone,Pain, Swelling PT-OP-M Strength Start: 10/20/20 13:48 Freq: Status: Active Protocol: Document 10/20/20 14:43 [facility] (Rec: 10/20/20 15:13 HH [email or web address]) Knee Strength Knee Manual Muscle Testing Right Flexion (S2) 3+ Fair+ Extension (L3) 3+ Fair+ Left Flexion (S2) 5 Normal Extension (L3) 5 Normal PT-OP-Q Treatments Start: 10/20/20 13:48 Freq: Status: Active Protocol: Document 11/04/20 15:28 [facility] (Rec: 11/04/20 15:40 [facility] [email or web address]) Cardio Equipment Recumbent Stepper (Sci-Fit) Duration (Minutes) 6 Resistance 1 Seat Position 10 Therapeutic Exercises Supine Exercises ball rolls for knee flexion Reps/Minutes x 20 SAQ Side right Equipment Used bolster underneath knee Reps/Minutes 10 x2 heel slide Supine Exercise Name with belt Side right Reps/Minutes 3 sec hold x8 Comments for HEP PROM Supine Exercise Name PT assisted for flexion and extension Comments hamstring stretch as well TKE Side right Equipment Used half foam roller Reps/Minutes 2 sec hold x10 Comments with PT assistance Standing Exercises standing calf stretch Reps/Minutes 60 seconds Comments pt used ALECIA and also shown standing calf stretch for home Gait Training Gait Activity stair training Description stair training Comments pt able to do a step over step pattern on stairs today both sets using the rail Manual Therapy Treatment Soft Tissue Mobilization quad MFR Body Location right quad Mobilization Type Myofascial Release Comments tightness in the distal quad scar tissue mobilization Body Location right knee Body Position Supine PT-OP-T Assessment and Plan Start: 10/20/20 13:48 Freq: Status: Active Protocol: Document 11/04/20 15:28 [facility] (Rec: 11/04/20 15:40 [facility] [email or web address]) Physical Therapy Assessment Assessment Summary Assessment pt ambulating without AD, reports working hard to walk straight and is not experiencing pain. Worked on scar tissue release and MFR for the quad. Knee flexion to 110 degrees. Pt able to ambulate up and down stairs with step over gait pattern using rails Physical Therapy Plan Frequency and Duration Frequency of Treatment 2x/Week Duration of Treatment 8 weeks Plan of Care Start Date 10/20/20 Plan of Care End Date 12/19/20 Therapeutic Interventions Therapeutic Interventions Aquatic Therapy,Balance Training,Gait Training,Home Exercise Program,Joint Mobilizations,Manual Therapy, Neuromuscular Re-education, Patient/Caregiver Education, Self-Care/Home Management,Soft Tissue Mobilization,Taping, Therapeutic Activities, Therapeutic Exercises Modalities Cold Pack/Ice Massage,Electric Stimulation,Hot Packs, Infrared Therapy,Ultrasound Next Visit Focus/Plan Next Note Type Treatment Note Next Visit Plan review HEP swelling STM passive TKE, flexion and scar tissue work SLS balance sit to stand trial of recumbant bike as pt has this at home
--- NOTE | 2020-11-06 17:38 | PT.OTN ---
Current Diagnoses Unilateral primary osteoarthritis, right knee (11/06/20) Physical Therapy Treatment Note PT-OP-A Visit Information Start: 10/20/20 13:48 Freq: Status: Active Protocol: Document 11/06/20 14:28 [facility] (Rec: 11/06/20 15:23 [facility] [id number]) Out-Patient Physical Therapy Visit Information Visit Information Visit Type Treatment Note Visit Start Time 14:30 Visit Stop Time 15:15 Total Visit Minutes 45 Visit Number 08/09 PT-OP-B Current Condition Start: 10/20/20 13:48 Freq: Status: Active Protocol: Document 10/20/20 14:43 [facility] (Rec: 10/20/20 15:13 HH [email or web address]) Current Condition History of Current Condition Onset Date 10/13/20 Current Complaints unicompartmental R knee replacement (medial), difficulty in walking History of Current Condition Ty is a 70yo female here with her today s/p POD 7 ( 10/13/20 )unicompartmental R knee replacement (medial) by jennifer Jean. Pt states she has been progressing well and able to walk around her house with a FWW. However, pt said she has not had any ROM / strengthening exercises given. She has been wearing compression leggings for swelling management. Pt is currently taking Aleve 3 times /day for pain control. Future Testing and Treatments Planned next f/u with surgeon 10/29/20 Current Functional Impairments (Reported) Functional Limitations- ADL's STS with staggered stance d/t limited knee flexion use of FWW for all mobility Functional Limitations- Other 2 STALIN from garage to home with railing on L and support in front. stair climbing with 2 rails ( step over pattern) PT-OP-C Subjective Start: 10/20/20 13:48 Freq: Status: Active Protocol: Document 11/06/20 14:28 [facility] (Rec: 11/06/20 15:23 [facility] [id number]) OP-PT Subjective Patient Comments Patient Comments pt was able to use her recumbant bike at home. She was able to make full resolutions but was sore at night and woke up to take IBU. Today her knee feels better. PT-OP-D Balance Start: 10/20/20 13:48 Freq: Status: Active Protocol: Document 10/20/20 14:43 HH (Rec: 10/20/20 15:13 HH [email or web address]) Balance Tests Single Limb Standing Single Limb- Right unable to test d/t pain PT-OP-G Mobility & Gait Start: 10/20/20 13:48 Freq: Status: Active Protocol: Document 10/20/20 14:43 [facility] (Rec: 10/20/20 15:13 HH [email or web address]) OP Mobility Evaluation Transfers Sit to Stand staggered stance, use of trunk forward lean to gain momentum and push off from walker OP Gait Assessment Assistive Devices Assistive Device Front Wheeled Walker Gait Deviations General Gait Pattern Antalgic,Decreased Stride Length,Decreased Feet Clearance,Step-to Gait Factors Limiting Gait Function Factors Limiting Gait Function Decreased Activity Tolerance, Decreased Strength, Incoordination,Limited Range of Motion,Pain,Poor Balance Comments Gait Comments mild R foot porcelain turner noted. lack of TKE during R stance phase Stair Climbing Evaluation Technique/Endurance Stair Climbing Direction Ascend and Descend Stair Climbing Technique Step Over Step Number of Steps Climbed 4 Stair Climbing Set # Repetitions (reps) 2 Comments Stair Climbing Comments pt primiarlly pulled from B handrails with a step over pattern. Unstable stance phase noted on R LE. Pt led with L to ascend and descend. PT-OP-K Range of Motion Start: 10/20/20 13:48 Freq: Status: Active Protocol: Document 10/20/20 14:43 [facility] (Rec: 10/20/20 15:13 [email or web address]) Knee Goniometric Range of Motion Knee Right Knee ROM WFL No Patient Position Supine Flexion Active (degrees) 63 Flexion Passive (degrees) 67 Extension Active (degrees) 10 Comments c/o tightness at incision site during knee flexion Left Knee ROM WFL Yes Flexion Active (degrees) 126 Extension Active (degrees) 0 Knee ROM Limitations Knee ROM Limitations Soft Tissue Tightness,Muscle Weakness,Muscle Tone,Pain, Swelling PT-OP-M Strength Start: 10/20/20 13:48 Freq: Status: Active Protocol: Document 10/20/20 14:43 [facility] (Rec: 10/20/20 15:13 [email or web address]) Knee Strength Knee Manual Muscle Testing Right Flexion (S2) 3+ Fair+ Extension (L3) 3+ Fair+ Left Flexion (S2) 5 Normal Extension (L3) 5 Normal PT-OP-Q Treatments Start: 10/20/20 13:48 Freq: Status: Active Protocol: Document 11/06/20 14:28 [facility] (Rec: 11/06/20 15:23 [facility] [id number]) Cardio Equipment Recumbent Bicycle Duration (Minutes) 8 Resistance 0 Seat Position 5 Other pt able to make full resolutions today Gym Equipment Shuttle Recovery Bilateral Squats Details bilateral squats Resistance 25# Shuttle Recovery Platform Stable Reps/Time 3 x 10 reps Therapeutic Exercises Supine Exercises bridges Reps/Minutes 2 x 10 reps hip roll outs Equipment Used level 2 TB Reps/Minutes 2 x 10 reps ball rolls for knee flexion Reps/Minutes x 20 Standing Exercises single leg stance Reps/Minutes with hand hold 3 x 15 seconds Comments firm surface mini squats Standing Exercise Name mini squats Reps/Minutes x 10 reps Comments slow descent standing calf stretch Reps/Minutes 60 seconds Comments pt used ALECIA and also shown standing calf stretch for home STS Reps/Minutes x 10 reps Comments from chair to stand Manual Therapy Treatment Soft Tissue Mobilization quad MFR Body Location right quad Mobilization Type Myofascial Release Comments tightness in the distal quad scar tissue mobilization Body Location right knee Body Position Supine PT-OP-T Assessment and Plan Start: 10/20/20 13:48 Freq: Status: Active Protocol: Document 11/06/20 14:30 [facility] (Rec: 11/06/20 17:36 [facility] [email or web address]) Physical Therapy Assessment Assessment Summary Assessment Ty is progressing well with PT, she is making full resolutions now on the recumbent bike. She still has difficulty with sit -stand from low chairs and wants to be able to ascend and descend stairs easier. Physical Therapy Plan Frequency and Duration Frequency of Treatment 2x/Week Duration of Treatment 8 weeks Plan of Care Start Date 10/20/20 Plan of Care End Date 12/19/20 Therapeutic Interventions Therapeutic Interventions Aquatic Therapy,Balance Training,Gait Training,Home Exercise Program,Joint Mobilizations,Manual Therapy, Neuromuscular Re-education, Patient/Caregiver Education, Self-Care/Home Management,Soft Tissue Mobilization,Taping, Therapeutic Activities, Therapeutic Exercises Modalities Cold Pack/Ice Massage,Electric Stimulation,Hot Packs, Infrared Therapy,Ultrasound Next Visit Focus/Plan Next Note Type Treatment Note Next Visit Plan continue progressing strength, full knee flexion, scar tissue mobilization, MFR over the quad, single leg stance and functional training for stairs and sit-stand activities
--- NOTE | 2020-11-11 14:47 | PT.OTN ---
Current Diagnoses Unilateral primary osteoarthritis, right knee (11/11/20) Physical Therapy Treatment Note PT-OP-A Visit Information Start: 10/20/20 13:48 Freq: Status: Active Protocol: Document 11/11/20 13:50 [facility] (Rec: 11/11/20 15:10 [facility] [id number]) Out-Patient Physical Therapy Visit Information Visit Information Visit Type Treatment Note Visit Start Time 13:50 Visit Stop Time 14:47 Total Visit Minutes 57 Visit Number 09/08 Number of [employer] Visits 1 Evaluation Information Evaluation Date 10/20/20 PT-OP-B Current Condition Start: 10/20/20 13:48 Freq: Status: Active Protocol: Document 10/20/20 14:43 HH (Rec: 10/20/20 15:13 HH [email or web address]) Current Condition History of Current Condition Onset Date 10/13/20 Current Complaints unicompartmental R knee replacement (medial), difficulty in walking History of Current Condition Ty is a 70yo female here with her today s/p POD 7 ( 10/13/20 )unicompartmental R knee replacement (medial) by jennifer Jean. Pt states she has been progressing well and able to walk around her house with a FWW. However, pt said she has not had any ROM / strengthening exercises given. She has been wearing compression leggings for swelling management. Pt is currently taking Aleve 3 times /day for pain control. Future Testing and Treatments Planned next f/u with surgeon 10/29/20 Current Functional Impairments (Reported) Functional Limitations- ADL's STS with staggered stance d/t limited knee flexion use of FWW for all mobility Functional Limitations- Other 2 STALIN from garage to home with railing on L and support in front. stair climbing with 2 rails ( step over pattern) PT-OP-C Subjective Start: 10/20/20 13:48 Freq: Status: Active Protocol: Document 11/11/20 13:50 [facility] (Rec: 11/11/20 15:10 [facility] [id number]) OP-PT Subjective Patient Comments Patient Comments Pt stated took a walk on Sat on portion of [place] trail over pavement surfaces, thinks might have gone little to far and still sore in R HS, quad, glut/piriformis. Patient Reported Progress Improving PT-OP-D Balance Start: 10/20/20 13:48 Freq: Status: Active Protocol: Document 10/20/20 14:43 [facility] (Rec: 10/20/20 15:13 [email or web address]) Balance Tests Single Limb Standing Single Limb- Right unable to test d/t pain PT-OP-G Mobility & Gait Start: 10/20/20 13:48 Freq: Status: Active Protocol: Document 10/20/20 14:43 [facility] (Rec: 10/20/20 15:13 [email or web address]) OP Mobility Evaluation Transfers Sit to Stand staggered stance, use of trunk forward lean to gain momentum and push off from walker OP Gait Assessment Assistive Devices Assistive Device Front Wheeled Walker Gait Deviations General Gait Pattern Antalgic,Decreased Stride Length,Decreased Feet Clearance,Step-to Gait Factors Limiting Gait Function Factors Limiting Gait Function Decreased Activity Tolerance, Decreased Strength, Incoordination,Limited Range of Motion,Pain,Poor Balance Comments Gait Comments mild R foot porcelain turner noted. lack of TKE during R stance phase Stair Climbing Evaluation Technique/Endurance Stair Climbing Direction Ascend and Descend Stair Climbing Technique Step Over Step Number of Steps Climbed 4 Stair Climbing Set # Repetitions (reps) 2 Comments Stair Climbing Comments pt primiarlly pulled from B handrails with a step over pattern. Unstable stance phase noted on R LE. Pt led with L to ascend and descend. PT-OP-K Range of Motion Start: 10/20/20 13:48 Freq: Status: Active Protocol: Document 10/20/20 14:43 [facility] (Rec: 10/20/20 15:13 [email or web address]) Knee Goniometric Range of Motion Knee Right Knee ROM WFL No Patient Position Supine Flexion Active (degrees) 63 Flexion Passive (degrees) 67 Extension Active (degrees) 10 Comments c/o tightness at incision site during knee flexion Left Knee ROM WFL Yes Flexion Active (degrees) 126 Extension Active (degrees) 0 Knee ROM Limitations Knee ROM Limitations Soft Tissue Tightness,Muscle Weakness,Muscle Tone,Pain, Swelling PT-OP-M Strength Start: 10/20/20 13:48 Freq: Status: Active Protocol: Document 10/20/20 14:43 [facility] (Rec: 10/20/20 15:13 [email or web address]) Knee Strength Knee Manual Muscle Testing Right Flexion (S2) 3+ Fair+ Extension (L3) 3+ Fair+ Left Flexion (S2) 5 Normal Extension (L3) 5 Normal PT-OP-Q Treatments Start: 10/20/20 13:48 Freq: Status: Active Protocol: Document 11/11/20 13:50 [facility] (Rec: 11/11/20 15:10 [facility] [id number]) Cardio Equipment Recumbent Bicycle Duration (Minutes) 10 Resistance 5 Seat Position 6 Other full revolutions, 54 RPM, 3.23 miles Therapeutic Exercises Supine Exercises ball rolls for knee flexion Supine Exercise Name discussed she is performing at home with strap and ball Comments not performed this tx TKE Supine Exercise Name Quad set w/ SLR Side right Reps/Minutes 2x5 reps Comments cued quad set then SLR each rep Prone Exercises prone hang Prone Exercise Name discussed but not performed to assist R knee extension Side right Reps/Minutes 30 x3 Comments added to HEP for increase R knee extension ROM Sitting Exercises self STMs Sitting Exercise Name HS, calf, quad, adductor Side right Equipment Used rolling pin Reps/Minutes 2 min Comments good feedback response Standing Exercises TKE Standing Exercise Name added to HEP Side right Resistance Level 2 TB Reps/Minutes x10 reps Comments cued eccentric directioning into R knee flexion f/b/ side steppiing Standing Exercise Name added to HEP Side bilateral Resistance AROM Equipment Used mirror for self feedback for decrease trunk SB lean Reps/Minutes 20 ft x3 laps each Comments improved level pelvis walk like book on head, better ecc LLE heel strike self STMs Standing Exercise Name glut, piriformis Side right Equipment Used racquetball on wall Reps/Minutes 1 min Comments good feedback response single leg stance Side bilateral Equipment Used chair contact as needed, firm surface Reps/Minutes 6, 13 LLE, 4, 10, 13 RLE Comments cued glut, hip abd, core fac. STS Standing Exercise Name eccentric taps- added to HEP Equipment Used arms clasped in front, 18 chair Reps/Minutes x 10 reps Comments from chair to stand Manual Therapy Treatment Soft Tissue Mobilization quad MFR Body Location right quad, HS, gastroc Mobilization Type Myofascial Release Body Position Supine Comments tightness in the distal quad Instructed use of rolling pin and racquetball at wall for self application manual STMs with good feedback results. scar tissue mobilization Body Location right knee Body Position Supine Joint Mobilizations patellar femoral Direction med/lat/sup/inf Grade II Body Position Supine Comments manual, reviewed self application Self-Care/Home Management Treatment Education Patient Education Home Exercise Program,Posture Other Education Initiated TKE, f/b/side stepping which improve hip abd and core facilitation for forward gait decreased lateral lean no AD. Educated use of rolling pin and racquetball on wall for self STMs to decrease hip / anterior/ posterior R knee tightness. PT-OP-T Assessment and Plan Start: 10/20/20 13:48 Freq: Status: Active Protocol: Document 11/11/20 13:50 SP (Rec: 11/11/20 15:10 SP [id number]) Physical Therapy Assessment Goals balance Impairment pt is unable to stand on 1 LE Short Term Goal (STG) pt will be able to show improved balance and strength to amb with sPC. 11/11/20: goal met, walking without AD. STG Duration GOAL MET Prison Goal (LTG) pt will be able to show improved balance and strength to amb without AD and compensation signs 11/11/20: Progressing: pt is not using AD, LTG Duration 8 weeks ROM Impairment pt shows very limited knee ROM 10- 65 only Short Term Goal (STG) pt will show increase R knee AROM to <5 degrees and > 100 degrees which allows her to stand up with even steps. 11/11/20: GOAL MET: 3-110 deg AROM. STG Duration GOAL MET Prison Goal (LTG) pt will show increase R knee AROM to <5 degrees and > 120 degrees which allows her to climb stairs with step over pattern 11/11/20: progressindeg at rest (1 deg quad set w/ ankle over roller) -110 deg AROM LTG Duration 8 weeks (progressing 11/11/20/) LEFS Impairment pt scores 40 on LEFS Short Term Goal (STG) pt will show improved mobility and strength to be able to score <30 on LEFs STG Duration 4 weeks Prison Goal (LTG) pt will show improved mobility and strength to be able to score <20 on LEFs LTG Duration 8 weeks Progress Towards Goals Progress Towards Goals Progressing Toward Goals Progress Comments Pt MET ROM and balance STGs, is not using AD anymore. Improved in quality gait this tx with improved core and hip abd facilitation. Assessment Summary Assessment Pt improved in R hip abd and core facilitation during SLS and level pelvis gait with significantly decreased trunk lean after extra time spent with quality gait emphasis like have a book on head. Pt has improved in ROM 1-110deg R knee. Physical Therapy Plan Frequency and Duration Frequency of Treatment 2x/Week Duration of Treatment 8 weeks Plan of Care Start Date 10/20/20 Plan of Care End Date 12/19/20 Therapeutic Interventions Therapeutic Interventions Aquatic Therapy,Balance Training,Gait Training,Home Exercise Program,Joint Mobilizations,Manual Therapy, Neuromuscular Re-education, Patient/Caregiver Education, Self-Care/Home Management,Soft Tissue Mobilization,Taping, Therapeutic Activities, Therapeutic Exercises Modalities Cold Pack/Ice Massage,Electric Stimulation,Hot Packs, Infrared Therapy,Ultrasound Next Visit Focus/Plan Next Note Type Treatment Note Next Visit Plan Assess response to initiated TKE, quality f/b/side stepping last tx for improved gait. POC: continue progressing strength, full knee flexion, scar tissue mobilization, MFR over the quad, single leg stance and functional training for stairs and sit-stand activities
--- NOTE | 2020-11-14 13:48 | PT.OTN ---
Current Diagnoses Unilateral primary osteoarthritis, right knee (11/14/20) Physical Therapy Treatment Note PT-OP-A Visit Information Start: 10/20/20 13:48 Freq: Status: Active Protocol: Document 11/14/20 12:57 HH (Rec: 11/14/20 13:47 HH [id number]) Out-Patient Physical Therapy Visit Information Visit Information Visit Type Treatment Note Visit Start Time 13:00 Visit Stop Time 13:45 Total Visit Minutes 45 Visit Number 10/09 Number of COMMUNICATIONS DEPARTMENT CHAIR Visits 0 PT-OP-B Current Condition Start: 10/20/20 13:48 Freq: Status: Active Protocol: Document 10/20/20 14:43 HH (Rec: 10/20/20 15:13 HH [email or web address]) Current Condition History of Current Condition Onset Date 10/13/20 Current Complaints unicompartmental R knee replacement (medial), difficulty in walking History of Current Condition Ty is a 70yo female here with her today s/p POD 7 ( 10/13/20 )unicompartmental R knee replacement (medial) by jennifer Jean. Pt states she has been progressing well and able to walk around her house with a FWW. However, pt said she has not had any ROM / strengthening exercises given. She has been wearing compression leggings for swelling management. Pt is currently taking Aleve 3 times /day for pain control. Future Testing and Treatments Planned next f/u with surgeon 10/29/20 Current Functional Impairments (Reported) Functional Limitations- ADL's STS with staggered stance d/t limited knee flexion use of FWW for all mobility Functional Limitations- Other 2 STALIN from garage to home with railing on L and support in front. stair climbing with 2 rails ( step over pattern) PT-OP-C Subjective Start: 10/20/20 13:48 Freq: Status: Active Protocol: Document 11/14/20 12:57 HH (Rec: 11/14/20 13:47 HH [id number]) OP-PT Subjective Patient Comments Patient Comments My knees is getting better and better. I have more discomfort at the back of the knee more than the front Patient Reported Progress Improving PT-OP-D Balance Start: 10/20/20 13:48 Freq: Status: Active Protocol: Document 10/20/20 14:43 HH (Rec: 10/20/20 15:13 HH [email or web address]) Balance Tests Single Limb Standing Single Limb- Right unable to test d/t pain PT-OP-G Mobility & Gait Start: 10/20/20 13:48 Freq: Status: Active Protocol: Document 10/20/20 14:43 HH (Rec: 10/20/20 15:13 [email or web address]) OP Mobility Evaluation Transfers Sit to Stand staggered stance, use of trunk forward lean to gain momentum and push off from walker OP Gait Assessment Assistive Devices Assistive Device Front Wheeled Walker Gait Deviations General Gait Pattern Antalgic,Decreased Stride Length,Decreased Feet Clearance,Step-to Gait Factors Limiting Gait Function Factors Limiting Gait Function Decreased Activity Tolerance, Decreased Strength, Incoordination,Limited Range of Motion,Pain,Poor Balance Comments Gait Comments mild R foot bottom turner noted. lack of TKE during R stance phase Stair Climbing Evaluation Technique/Endurance Stair Climbing Direction Ascend and Descend Stair Climbing Technique Step Over Step Number of Steps Climbed 4 Stair Climbing Set # Repetitions (reps) 2 Comments Stair Climbing Comments pt primiarlly pulled from B handrails with a step over pattern. Unstable stance phase noted on R LE. Pt led with L to ascend and descend. PT-OP-K Range of Motion Start: 10/20/20 13:48 Freq: Status: Active Protocol: Document 10/20/20 14:43 HH (Rec: 10/20/20 15:13 [email or web address]) Knee Goniometric Range of Motion Knee Right Knee ROM WFL No Patient Position Supine Flexion Active (degrees) 63 Flexion Passive (degrees) 67 Extension Active (degrees) 10 Comments c/o tightness at incision site during knee flexion Left Knee ROM WFL Yes Flexion Active (degrees) 126 Extension Active (degrees) 0 Knee ROM Limitations Knee ROM Limitations Soft Tissue Tightness,Muscle Weakness,Muscle Tone,Pain, Swelling PT-OP-M Strength Start: 10/20/20 13:48 Freq: Status: Active Protocol: Document 10/20/20 14:43 HH (Rec: 10/20/20 15:13 [email or web address]) Knee Strength Knee Manual Muscle Testing Right Flexion (S2) 3+ Fair+ Extension (L3) 3+ Fair+ Left Flexion (S2) 5 Normal Extension (L3) 5 Normal PT-OP-Q Treatments Start: 10/20/20 13:48 Freq: Status: Active Protocol: Document 11/14/20 12:57 HH (Rec: 11/14/20 13:47 [id number]) Cardio Equipment Recumbent Bicycle Duration (Minutes) 10 Resistance 5 Seat Position 6 Other full revolutions, 54 RPM, 3.23 miles Gym Equipment Shuttle Recovery SL squat Details single leg squat Resistance 25# Shuttle Recovery Platform Stable Reps/Time 10,10,12 , 1st set 25#, then 37# 2nd set Therapeutic Exercises Supine Exercises PROM Supine Exercise Name PT assisted for flexion TKE Supine Exercise Name Quad set w/ SLR Side right Reps/Minutes 2x5 reps Comments cued quad set then SLR each rep Standing Exercises step up Equipment Used 4 inches Reps/Minutes 10x2 Comments without UE support. TKE Standing Exercise Name added to HEP Side right Resistance Level 2 TB Reps/Minutes x10 reps Comments cued eccentric directioning into R knee flexion standing calf stretch Reps/Minutes 60 seconds Comments pt used ALECIA and also shown standing calf stretch for home Gait Training Gait Activity heel toe Description within //bar Level of Assistance SBA Surface ground level Distance/Duration 20 ft x 6 Manual Therapy Treatment Soft Tissue Mobilization quad MFR Body Location right quad, HS, gastroc Mobilization Type Myofascial Release Body Position Supine Comments tightness in the distal quad Instructed use of rolling pin and racquetball at wall for self application manual STMs with good feedback results. PT-OP-T Assessment and Plan Start: 10/20/20 13:48 Freq: Status: Active Protocol: Document 11/14/20 12:57 (Rec: 11/14/20 13:47 [id number]) Physical Therapy Assessment Goals balance Impairment pt is unable to stand on 1 LE Short Term Goal (STG) pt will be able to show improved balance and strength to amb with sPC. 11/11/20: goal met, walking without AD. STG Duration GOAL MET Snf Goal (LTG) pt will be able to show improved balance and strength to amb without AD and compensation signs 11/11/20: Progressing: pt is not using AD, LTG Duration 8 weeks ROM Impairment pt shows very limited knee ROM 10- 65 only Short Term Goal (STG) pt will show increase R knee AROM to <5 degrees and > 100 degrees which allows her to stand up with even steps. 11/11/20: GOAL MET: 3-110 deg AROM. STG Duration GOAL MET Group Work Program Director Goal (LTG) pt will show increase R knee AROM to <5 degrees and > 120 degrees which allows her to climb stairs with step over pattern 11/11/20: progressindeg at rest (1 deg quad set w/ ankle over roller) -110 deg AROM LTG Duration 8 weeks (progressing 11/11/20/) LEFS Impairment pt scores 40 on LEFS Short Term Goal (STG) pt will show improved mobility and strength to be able to score <30 on LEFs STG Duration 4 weeks Snf Goal (LTG) pt will show improved mobility and strength to be able to score <20 on LEFs LTG Duration 8 weeks Assessment Summary Assessment Supine knee AROM= 105. Pt shows improved ROM and strength since last time i saw her. Progress her therex to SL squat on leg press, heel toe gait, and step up. Physical Therapy Plan Frequency and Duration Frequency of Treatment 2x/Week Duration of Treatment 8 weeks Plan of Care Start Date 10/20/20 Plan of Care End Date 12/19/20 Therapeutic Interventions Therapeutic Interventions Aquatic Therapy,Balance Training,Gait Training,Home Exercise Program,Joint Mobilizations,Manual Therapy, Neuromuscular Re-education, Patient/Caregiver Education, Self-Care/Home Management,Soft Tissue Mobilization,Taping, Therapeutic Activities, Therapeutic Exercises Modalities Cold Pack/Ice Massage,Electric Stimulation,Hot Packs, Infrared Therapy,Ultrasound Next Visit Focus/Plan Next Note Type Treatment Note Next Visit Plan Assess response to initiated TKE, quality f/b/side stepping last tx for improved gait. POC: continue progressing strength, full knee flexion, scar tissue mobilization, MFR over the quad, single leg stance and functional training for stairs and sit-stand activities
--- NOTE | 2020-11-18 17:41 | PT.OTN ---
Current Diagnoses Unilateral primary osteoarthritis, right knee (11/18/20) Physical Therapy Treatment Note PT-OP-A Visit Information Start: 10/20/20 13:48 Freq: Status: Active Protocol: Document 11/18/20 14:30 [facility] (Rec: 11/18/20 17:41 [facility] [email or web address]) Out-Patient Physical Therapy Visit Information Visit Information Visit Type Treatment Note Visit Start Time 14:30 Visit Stop Time 15:15 Total Visit Minutes 45 Visit Number 11/09 PT-OP-B Current Condition Start: 10/20/20 13:48 Freq: Status: Active Protocol: Document 10/20/20 14:43 HH (Rec: 10/20/20 15:13 HH [email or web address]) Current Condition History of Current Condition Onset Date 10/13/20 Current Complaints unicompartmental R knee replacement (medial), difficulty in walking History of Current Condition Ty is a 70yo female here with her today s/p POD 7 ( 10/13/20 )unicompartmental R knee replacement (medial) by jennifer Jean. Pt states she has been progressing well and able to walk around her house with a FWW. However, pt said she has not had any ROM / strengthening exercises given. She has been wearing compression leggings for swelling management. Pt is currently taking Aleve 3 times /day for pain control. Future Testing and Treatments Planned next f/u with surgeon 10/29/20 Current Functional Impairments (Reported) Functional Limitations- ADL's STS with staggered stance d/t limited knee flexion use of FWW for all mobility Functional Limitations- Other 2 STALIN from garage to home with railing on L and support in front. stair climbing with 2 rails ( step over pattern) PT-OP-C Subjective Start: 10/20/20 13:48 Freq: Status: Active Protocol: Document 11/18/20 14:30 [facility] (Rec: 11/18/20 17:41 [facility] [email or web address]) OP-PT Subjective Patient Comments Patient Comments pt reports she was feeling so much better she thinks she over did it at home with 13 minutes on the bike and stair exercises. She reports being sore in the back of her leg and points to her hamstring muscles Patient Reported Progress Improving PT-OP-D Balance Start: 10/20/20 13:48 Freq: Status: Active Protocol: Document 10/20/20 14:43 HH (Rec: 10/20/20 15:13 HH [email or web address]) Balance Tests Single Limb Standing Single Limb- Right unable to test d/t pain PT-OP-G Mobility & Gait Start: 10/20/20 13:48 Freq: Status: Active Protocol: Document 10/20/20 14:43 HH (Rec: 10/20/20 15:13 HH [email or web address]) OP Mobility Evaluation Transfers Sit to Stand staggered stance, use of trunk forward lean to gain momentum and push off from walker OP Gait Assessment Assistive Devices Assistive Device Front Wheeled Walker Gait Deviations General Gait Pattern Antalgic,Decreased Stride Length,Decreased Feet Clearance,Step-to Gait Factors Limiting Gait Function Factors Limiting Gait Function Decreased Activity Tolerance, Decreased Strength, Incoordination,Limited Range of Motion,Pain,Poor Balance Comments Gait Comments 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 lack of TKE during R stance phase Stair Climbing Evaluation Technique/Endurance Stair Climbing Direction Ascend and Descend Stair Climbing Technique Step Over Step Number of Steps Climbed 4 Stair Climbing Set # Repetitions (reps) 2 Comments Stair Climbing Comments pt primiarlly pulled from B handrails with a step over pattern. Unstable stance phase noted on R LE. Pt led with L to ascend and descend. PT-OP-K Range of Motion Start: 10/20/20 13:48 Freq: Status: Active Protocol: Document 10/20/20 14:43 HH (Rec: 10/20/20 15:13 [email or web address]) Knee Goniometric Range of Motion Knee Right Knee ROM WFL No Patient Position Supine Flexion Active (degrees) 63 Flexion Passive (degrees) 67 Extension Active (degrees) 10 Comments c/o tightness at incision site during knee flexion Left Knee ROM WFL Yes Flexion Active (degrees) 126 Extension Active (degrees) 0 Knee ROM Limitations Knee ROM Limitations Soft Tissue Tightness,Muscle Weakness,Muscle Tone,Pain, Swelling PT-OP-M Strength Start: 10/20/20 13:48 Freq: Status: Active Protocol: Document 10/20/20 14:43 HH (Rec: 10/20/20 15:13 HH [email or web address]) Knee Strength Knee Manual Muscle Testing Right Flexion (S2) 3+ Fair+ Extension (L3) 3+ Fair+ Left Flexion (S2) 5 Normal Extension (L3) 5 Normal PT-OP-Q Treatments Start: 10/20/20 13:48 Freq: Status: Active Protocol: Document 11/18/20 14:30 [facility] (Rec: 11/18/20 17:41 [facility] [email or web address]) Cardio Equipment Recumbent Bicycle Duration (Minutes) 6 Resistance 3 Seat Position 6 Gym Equipment Shuttle Recovery SL squat Details single leg squat Resistance 25# Shuttle Recovery Platform Stable Reps/Time 10,10,12 , 1st set 25#, then 37# 2nd set Bilateral Squats Details bilateral squats Resistance 50# Shuttle Recovery Platform Stable Reps/Time 3 x 10 reps Therapeutic Exercises Standing Exercises sidesteps with theraband around thighs Reps/Minutes 4 xms the length of bars standing alternating taps on the step Reps/Minutes 2 x 10 reps lateral step ups Reps/Minutes 2 x 10 Comments with hand support on rail step up Equipment Used 4 inches Reps/Minutes 10x2 Comments with one hand support standing calf stretch Reps/Minutes 60 seconds Comments pt used ALECIA and also shown standing calf stretch for home Manual Therapy Treatment Soft Tissue Mobilization STM to lateral calf and lateral hamstring in prone Mobilization Type Myofascial Release Intensity/Depth Moderate Body Position Prone PT-OP-T Assessment and Plan Start: 10/20/20 13:48 Freq: Status: Active Protocol: Document 11/18/20 14:30 [facility] (Rec: 11/18/20 17:41 [facility] [email or web address]) Physical Therapy Assessment Assessment Summary Assessment pt continues to show improvement with ROM, stairs, and balance. She was sore the length of her hamstring today and she felt she may have over did it at home. She was able to work on step ups and sidesteps today without increased pain. I did work on releasing her hamstrings in prone. Pt needs cues to increase knee flexion with steps as she was circumducting the right leg today Physical Therapy Plan Frequency and Duration Frequency of Treatment 2x/Week Duration of Treatment 8 weeks Plan of Care Start Date 10/20/20 Plan of Care End Date 12/19/20 Therapeutic Interventions Therapeutic Interventions Aquatic Therapy,Balance Training,Gait Training,Home Exercise Program,Joint Mobilizations,Manual Therapy, Neuromuscular Re-education, Patient/Caregiver Education, Self-Care/Home Management,Soft Tissue Mobilization,Taping, Therapeutic Activities, Therapeutic Exercises Modalities Cold Pack/Ice Massage,Electric Stimulation,Hot Packs, Infrared Therapy,Ultrasound Next Visit Focus/Plan Next Note Type Treatment Note Next Visit Plan POC: continue progressing strength, full knee flexion, scar tissue mobilization, MFR over the quad, single leg stance and functional training for stairs and sit-stand activities
--- NOTE | 2020-11-23 17:41 | PT.OTN ---
Current Diagnoses Unilateral primary osteoarthritis, right knee (11/20/20) Physical Therapy Treatment Note PT-OP-A Visit Information Start: 10/20/20 13:48 Freq: Status: Active Protocol: Document 11/20/20 15:15 [facility] (Rec: 11/20/20 16:04 [facility] [id number]) Out-Patient Physical Therapy Visit Information Visit Information Visit Type Treatment Note Visit Start Time 15:15 Visit Stop Time 16:00 Total Visit Minutes 45 Visit Number 12/09 PT-OP-B Current Condition Start: 10/20/20 13:48 Freq: Status: Active Protocol: Document 10/20/20 14:43 HH (Rec: 10/20/20 15:13 HH [email or web address]) Current Condition History of Current Condition Onset Date 10/13/20 Current Complaints unicompartmental R knee replacement (medial), difficulty in walking History of Current Condition Ty is a 70yo female here with her today s/p POD 7 ( 10/13/20 )unicompartmental R knee replacement (medial) by surgeon Dr. Jean. Pt states she has been progressing well and able to walk around her house with a FWW. However, pt said she has not had any ROM / strengthening exercises given. She has been wearing compression leggings for swelling management. Pt is currently taking Aleve 3 times /day for pain control. Future Testing and Treatments Planned next f/u with surgeon 10/29/20 Current Functional Impairments (Reported) Functional Limitations- ADL's STS with staggered stance d/t limited knee flexion use of FWW for all mobility Functional Limitations- Other 2 STALIN from garage to home with railing on L and support in front. stair climbing with 2 rails ( step over pattern) PT-OP-C Subjective Start: 10/20/20 13:48 Freq: Status: Active Protocol: Document 11/20/20 15:15 [facility] (Rec: 11/23/20 17:41 [facility] [email or web address]) OP-PT Subjective Patient Comments Patient Comments pt notes she feels better today with decreased c/o hamstring pain PT-OP-D Balance Start: 10/20/20 13:48 Freq: Status: Active Protocol: Document 10/20/20 14:43 HH (Rec: 10/20/20 15:13 HH [email or web address]) Balance Tests Single Limb Standing Single Limb- Right unable to test d/t pain PT-OP-G Mobility & Gait Start: 10/20/20 13:48 Freq: Status: Active Protocol: Document 10/20/20 14:43 HH (Rec: 10/20/20 15:13 HH [email or web address]) OP Mobility Evaluation Transfers Sit to Stand staggered stance, use of trunk forward lean to gain momentum and push off from walker OP Gait Assessment Assistive Devices Assistive Device Front Wheeled Walker Gait Deviations General Gait Pattern Antalgic,Decreased Stride Length,Decreased Feet Clearance,Step-to Gait Factors Limiting Gait Function Factors Limiting Gait Function Decreased Activity Tolerance, Decreased Strength, Incoordination,Limited Range of Motion,Pain,Poor Balance Comments Gait Comments 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 lack of TKE during R stance phase Stair Climbing Evaluation Technique/Endurance Stair Climbing Direction Ascend and Descend Stair Climbing Technique Step Over Step Number of Steps Climbed 4 Stair Climbing Set # Repetitions (reps) 2 Comments Stair Climbing Comments pt primiarlly pulled from B handrails with a step over pattern. Unstable stance phase noted on R LE. Pt led with L to ascend and descend. PT-OP-K Range of Motion Start: 10/20/20 13:48 Freq: Status: Active Protocol: Document 10/20/20 14:43 HH (Rec: 10/20/20 15:13 HH [email or web address]) Knee Goniometric Range of Motion Knee Right Knee ROM WFL No Patient Position Supine Flexion Active (degrees) 63 Flexion Passive (degrees) 67 Extension Active (degrees) 10 Comments c/o tightness at incision site during knee flexion Left Knee ROM WFL Yes Flexion Active (degrees) 126 Extension Active (degrees) 0 Knee ROM Limitations Knee ROM Limitations Soft Tissue Tightness,Muscle Weakness,Muscle Tone,Pain, Swelling PT-OP-M Strength Start: 10/20/20 13:48 Freq: Status: Active Protocol: Document 10/20/20 14:43 HH (Rec: 10/20/20 15:13 HH [email or web address]) Knee Strength Knee Manual Muscle Testing Right Flexion (S2) 3+ Fair+ Extension (L3) 3+ Fair+ Left Flexion (S2) 5 Normal Extension (L3) 5 Normal PT-OP-Q Treatments Start: 10/20/20 13:48 Freq: Status: Active Protocol: Document 11/20/20 15:15 [facility] (Rec: 11/23/20 17:41 [facility] [email or web address]) Cardio Equipment Recumbent Bicycle Duration (Minutes) 10 Resistance 5 Seat Position 6 Gym Equipment Shuttle Recovery SL squat Details single leg squat Resistance 50# Shuttle Recovery Platform Stable Reps/Time 3 x10 reps at 50# Bilateral Squats Details bilateral squats Resistance 62# Shuttle Recovery Platform Stable Reps/Time 3 x 10 reps Therapeutic Exercises Standing Exercises standing hamstring stretch Reps/Minutes 60 seconds Comments used staircase to stretch standing alternating taps on the step Reps/Minutes 2 x 10 reps lateral step ups Reps/Minutes 2 x 10 Comments with hand support on rail step up Equipment Used 4 inches Reps/Minutes 10x2 Comments with one hand support single leg stance Reps/Minutes x 30 sec each leg standing calf stretch Reps/Minutes 60 seconds Comments pt used ALECIA and also shown standing calf stretch for home Manual Therapy Treatment Soft Tissue Mobilization STM to lateral calf and lateral hamstring in prone Mobilization Type Myofascial Release Intensity/Depth Moderate Body Position Prone Manual Techniques manual quad stretch Body Position Prone Comments contract/relax was used to help increase knee flexion ROM in prone PT-OP-T Assessment and Plan Start: 10/20/20 13:48 Freq: Status: Active Protocol: Document 11/20/20 15:15 [facility] (Rec: 11/23/20 17:41 [facility] [email or web address]) Physical Therapy Assessment Assessment Summary Assessment Ty continues to show improvements with strength and stairs. She would like to be able to do stairs without a hand hold. There is still tightness noted in the distal hamstring attachments and proximal calf attachments however she was not as sore today. Physical Therapy Plan Frequency and Duration Frequency of Treatment 2x/Week Duration of Treatment 8 weeks Plan of Care Start Date 10/20/20 Plan of Care End Date 12/19/20 Therapeutic Interventions Therapeutic Interventions Aquatic Therapy,Balance Training,Gait Training,Home Exercise Program,Joint Mobilizations,Manual Therapy, Neuromuscular Re-education, Patient/Caregiver Education, Self-Care/Home Management,Soft Tissue Mobilization,Taping, Therapeutic Activities, Therapeutic Exercises Modalities Cold Pack/Ice Massage,Electric Stimulation,Hot Packs, Infrared Therapy,Ultrasound Next Visit Focus/Plan Next Note Type Progress Note Next Visit Plan POC: continue progressing strength, full knee flexion, scar tissue mobilization, MFR over the quad, single leg stance and functional training for stairs and sit-stand activities
--- NOTE | 2020-11-27 14:02 | PT.OTN ---
Current Diagnoses Unilateral primary osteoarthritis, right knee (11/27/20) Physical Therapy Treatment Note PT-OP-A Visit Information Start: 10/20/20 13:48 Freq: Status: Active Protocol: Document 11/27/20 13:01 [facility] (Rec: 11/27/20 13:49 [facility] [id number]) Out-Patient Physical Therapy Visit Information Visit Information Visit Type Treatment Note Visit Start Time 13:00 Visit Stop Time 01:34 Total Visit Minutes 45 Visit Number 01/09 PT-OP-B Current Condition Start: 10/20/20 13:48 Freq: Status: Active Protocol: Document 10/20/20 14:43 [facility] (Rec: 10/20/20 15:13 HH [email or web address]) Current Condition History of Current Condition Onset Date 10/13/20 Current Complaints unicompartmental R knee replacement (medial), difficulty in walking History of Current Condition Ty is a 70yo female here with her today s/p POD 7 ( 10/13/20 )unicompartmental R knee replacement (medial) by jennifer Jean. Pt states she has been progressing well and able to walk around her house with a FWW. However, pt said she has not had any ROM / strengthening exercises given. She has been wearing compression leggings for swelling management. Pt is currently taking Aleve 3 times /day for pain control. Future Testing and Treatments Planned next f/u with surgeon 10/29/20 Current Functional Impairments (Reported) Functional Limitations- ADL's STS with staggered stance d/t limited knee flexion use of FWW for all mobility Functional Limitations- Other 2 STALIN from garage to home with railing on L and support in front. stair climbing with 2 rails ( step over pattern) PT-OP-C Subjective Start: 10/20/20 13:48 Freq: Status: Active Protocol: Document 11/27/20 13:01 [facility] (Rec: 11/27/20 13:49 [facility] [id number]) OP-PT Subjective Patient Comments Patient Comments pt reports she has been doing all her exercises, she is still feeling tight in the hamstring PT-OP-D Balance Start: 10/20/20 13:48 Freq: Status: Active Protocol: Document 10/20/20 14:43 HH (Rec: 10/20/20 15:13 HH [email or web address]) Balance Tests Single Limb Standing Single Limb- Right unable to test d/t pain PT-OP-G Mobility & Gait Start: 10/20/20 13:48 Freq: Status: Active Protocol: Document 10/20/20 14:43 HH (Rec: 10/20/20 15:13 HH [email or web address]) OP Mobility Evaluation Transfers Sit to Stand staggered stance, use of trunk forward lean to gain momentum and push off from walker OP Gait Assessment Assistive Devices Assistive Device Front Wheeled Walker Gait Deviations General Gait Pattern Antalgic,Decreased Stride Length,Decreased Feet Clearance,Step-to Gait Factors Limiting Gait Function Factors Limiting Gait Function Decreased Activity Tolerance, Decreased Strength, Incoordination,Limited Range of Motion,Pain,Poor Balance Comments Gait Comments mild R foot channel turner noted. lack of TKE during R stance phase Stair Climbing Evaluation Technique/Endurance Stair Climbing Direction Ascend and Descend Stair Climbing Technique Step Over Step Number of Steps Climbed 4 Stair Climbing Set # Repetitions (reps) 2 Comments Stair Climbing Comments pt primiarlly pulled from B handrails with a step over pattern. Unstable stance phase noted on R LE. Pt led with L to ascend and descend. PT-OP-K Range of Motion Start: 10/20/20 13:48 Freq: Status: Active Protocol: Document 10/20/20 14:43 [facility] (Rec: 10/20/20 15:13 HH [email or web address]) Knee Goniometric Range of Motion Knee Right Knee ROM WFL No Patient Position Supine Flexion Active (degrees) 63 Flexion Passive (degrees) 67 Extension Active (degrees) 10 Comments c/o tightness at incision site during knee flexion Left Knee ROM WFL Yes Flexion Active (degrees) 126 Extension Active (degrees) 0 Knee ROM Limitations Knee ROM Limitations Soft Tissue Tightness,Muscle Weakness,Muscle Tone,Pain, Swelling PT-OP-M Strength Start: 10/20/20 13:48 Freq: Status: Active Protocol: Document 10/20/20 14:43 HH (Rec: 10/20/20 15:13 HH [email or web address]) Knee Strength Knee Manual Muscle Testing Right Flexion (S2) 3+ Fair+ Extension (L3) 3+ Fair+ Left Flexion (S2) 5 Normal Extension (L3) 5 Normal PT-OP-Q Treatments Start: 10/20/20 13:48 Freq: Status: Active Protocol: Document 11/27/20 13:01 [facility] (Rec: 11/27/20 13:49 [facility] [id number]) Gym Equipment Shuttle Balance 1 Details red Reps/Duration 2 x 10 Comments anterior/posterior and side/ side Therapeutic Exercises Prone Exercises prone quad stretch Reps/Minutes 1-2 reps holding 60 sec Standing Exercises standing hamstring stretch Reps/Minutes 60 seconds Comments used staircase to stretch sidesteps with theraband around thighs Reps/Minutes 4 xms the length of bars standing alternating taps on the step Reps/Minutes 2 x 10 reps lateral step ups Reps/Minutes 2 x 10 Comments in parallel bars without hand support step up Equipment Used 4 inches Reps/Minutes 10x2 Comments in parallel bars without hand support TKE Standing Exercise Name added to HEP Side right Resistance Level 2 TB Reps/Minutes x10 reps Comments cued eccentric directioning into R knee flexion f/b/ side steppiing Standing Exercise Name added to HEP Side bilateral Resistance AROM Equipment Used mirror for self feedback for decrease trunk SB lean Reps/Minutes 20 ft x3 laps each Comments improved level pelvis walk like book on head, better ecc LLE heel strike self STMs Standing Exercise Name glut, piriformis Side right Equipment Used racquetball on wall Reps/Minutes 1 min Comments good feedback response single leg stance Reps/Minutes x 30 sec each leg standing calf stretch Reps/Minutes 60 seconds Comments pt used ALECIA and also shown standing calf stretch for home STS Standing Exercise Name eccentric taps- added to HEP Equipment Used arms clasped in front, 18 chair Reps/Minutes x 10 reps Comments from chair to stand Manual Therapy Treatment Soft Tissue Mobilization STM to lateral calf and lateral hamstring in prone Mobilization Type Myofascial Release Intensity/Depth Moderate Body Position Prone Manual Techniques manual quad stretch Body Position Prone Comments contract/relax was used to help increase knee flexion ROM in prone PT-OP-T Assessment and Plan Start: 10/20/20 13:48 Freq: Status: Active Protocol: Document 11/27/20 13:00 [facility] (Rec: 11/27/20 14:01 [facility] [id number]) Physical Therapy Assessment Assessment Summary Assessment Ty is making good progress with balance, we worked on step ups and side steps without hands today in the parallel bars and added on the balance master and she tolerated these well. Still tight the the lateral gastroc and hamstrings Physical Therapy Plan Frequency and Duration Frequency of Treatment 2x/Week Duration of Treatment 8 weeks Plan of Care Start Date 10/20/20 Plan of Care End Date 12/19/20 Therapeutic Interventions Therapeutic Interventions Aquatic Therapy,Balance Training,Gait Training,Home Exercise Program,Joint Mobilizations,Manual Therapy, Neuromuscular Re-education, Patient/Caregiver Education, Self-Care/Home Management,Soft Tissue Mobilization,Taping, Therapeutic Activities, Therapeutic Exercises Modalities Cold Pack/Ice Massage,Electric Stimulation,Hot Packs, Infrared Therapy,Ultrasound Next Visit Focus/Plan Next Note Type Treatment Note Next Visit Plan continue progressing balance, strength, stairs and decreasing hamstring tightness
--- NOTE | 2020-12-04 17:59 | PT.OTN ---
Current Diagnoses Unilateral primary osteoarthritis, right knee (12/04/20) Physical Therapy Treatment Note PT-OP-A Visit Information Start: 10/20/20 13:48 Freq: Status: Active Protocol: Document 12/04/20 12:57 [facility] (Rec: 12/04/20 12:58 [facility] [id number]) Out-Patient Physical Therapy Visit Information Visit Information Visit Type Progress Note Visit Start Time 13:00 Visit Stop Time 13:45 Total Visit Minutes 45 Visit Number 02/08 PT-OP-B Current Condition Start: 10/20/20 13:48 Freq: Status: Active Protocol: Document 10/20/20 14:43 HH (Rec: 10/20/20 15:13 HH [email or web address]) Current Condition History of Current Condition Onset Date 10/13/20 Current Complaints unicompartmental R knee replacement (medial), difficulty in walking History of Current Condition Ty is a 70yo female here with her today s/p POD 7 ( 10/13/20 )unicompartmental R knee replacement (medial) by jennifer Jean. Pt states she has been progressing well and able to walk around her house with a FWW. However, pt said she has not had any ROM / strengthening exercises given. She has been wearing compression leggings for swelling management. Pt is currently taking Aleve 3 times /day for pain control. Future Testing and Treatments Planned next f/u with surgeon 10/29/20 Current Functional Impairments (Reported) Functional Limitations- ADL's STS with staggered stance d/t limited knee flexion use of FWW for all mobility Functional Limitations- Other 2 STALIN from garage to home with railing on L and support in front. stair climbing with 2 rails ( step over pattern) PT-OP-C Subjective Start: 10/20/20 13:48 Freq: Status: Active Protocol: Document 12/04/20 12:57 [facility] (Rec: 12/04/20 14:00 [facility] [id number]) OP-PT Subjective Patient Comments Patient Comments pt reports she didn't need to take any pain meds last night, she is feeling better overall . She has been trying to go up and down her stairs 3 times per day. PT is doing 20 min on the bike most days. She has an appointment with her doctor on Tuesday. She notes that the tightness she feels in her knee is in the back rather than in the front. Patient Reported Progress Improving PT-OP-D Balance Start: 10/20/20 13:48 Freq: Status: Active Protocol: Document 10/20/20 14:43 HH (Rec: 10/20/20 15:13 [email or web address]) Balance Tests Single Limb Standing Single Limb- Right unable to test d/t pain PT-OP-G Mobility & Gait Start: 10/20/20 13:48 Freq: Status: Active Protocol: Document 10/20/20 14:43 [facility] (Rec: 10/20/20 15:13 [email or web address]) OP Mobility Evaluation Transfers Sit to Stand staggered stance, use of trunk forward lean to gain momentum and push off from walker OP Gait Assessment Assistive Devices Assistive Device Front Wheeled Walker Gait Deviations General Gait Pattern Antalgic,Decreased Stride Length,Decreased Feet Clearance,Step-to Gait Factors Limiting Gait Function Factors Limiting Gait Function Decreased Activity Tolerance, Decreased Strength, Incoordination,Limited Range of Motion,Pain,Poor Balance Comments Gait Comments mild R foot return agent noted. lack of TKE during R stance phase Stair Climbing Evaluation Technique/Endurance Stair Climbing Direction Ascend and Descend Stair Climbing Technique Step Over Step Number of Steps Climbed 4 Stair Climbing Set # Repetitions (reps) 2 Comments Stair Climbing Comments pt primiarlly pulled from B handrails with a step over pattern. Unstable stance phase noted on R LE. Pt led with L to ascend and descend. PT-OP-K Range of Motion Start: 10/20/20 13:48 Freq: Status: Active Protocol: Document 10/20/20 14:43 HH (Rec: 10/20/20 15:13 [email or web address]) Knee Goniometric Range of Motion Knee Right Knee ROM WFL No Patient Position Supine Flexion Active (degrees) 63 Flexion Passive (degrees) 67 Extension Active (degrees) 10 Comments c/o tightness at incision site during knee flexion Left Knee ROM WFL Yes Flexion Active (degrees) 126 Extension Active (degrees) 0 Knee ROM Limitations Knee ROM Limitations Soft Tissue Tightness,Muscle Weakness,Muscle Tone,Pain, Swelling PT-OP-M Strength Start: 10/20/20 13:48 Freq: Status: Active Protocol: Document 10/20/20 14:43 HH (Rec: 10/20/20 15:13 [email or web address]) Knee Strength Knee Manual Muscle Testing Right Flexion (S2) 3+ Fair+ Extension (L3) 3+ Fair+ Left Flexion (S2) 5 Normal Extension (L3) 5 Normal PT-OP-Q Treatments Start: 10/20/20 13:48 Freq: Status: Active Protocol: Document 12/04/20 12:57 [facility] (Rec: 12/04/20 14:00 [facility] [id number]) Gym Equipment Shuttle Recovery SL squat Details single leg squat Resistance 50# Shuttle Recovery Platform Stable Reps/Time 3 x10 reps at 50# Bilateral Squats Details bilateral squats Resistance 75# Shuttle Recovery Platform Stable Reps/Time 3 x 10 reps Therapeutic Exercises Supine Exercises bridges Reps/Minutes 2 x 10 reps Prone Exercises prone quad stretch Reps/Minutes 1-2 reps holding 60 sec Standing Exercises standing hamstring stretch Comments turn toes in to get the lateral calf standing alternating taps on the step Reps/Minutes 2 x 10 reps lateral step ups Reps/Minutes 2 x 10 Comments in parallel bars without hand support step up Equipment Used 4 inches Reps/Minutes 10x2 Comments in parallel bars without hand support standing calf stretch Reps/Minutes 60 seconds Comments pt used ALECIA and also shown standing calf stretch for home Manual Therapy Treatment Soft Tissue Mobilization ITB MFR Mobilization Type Myofascial Release Body Position Sidelying Comments pt in left sidelying, release of the distal ITB attachemnts to the lateral knee and fibular head. Gusha was used at the end lightly to test out how Ty would tolerate this PT-OP-T Assessment and Plan Start: 10/20/20 13:48 Freq: Status: Active Protocol: Document 12/04/20 12:57 [facility] (Rec: 12/04/20 14:00 [facility] [id number]) Physical Therapy Assessment Goals balance Impairment pt is unable to stand on 1 LE Short Term Goal (STG) pt will be able to show improved balance and strength to amb with sPC. 11/11/20: goal met, walking without AD. STG Duration GOAL MET Pbx Technician Goal (LTG) pt will be able to show improved balance and strength to amb without AD and compensation signs 12/04/20 Ty is making steady progress ambulating with improved WB and decreased antalgic gait pattern. LTG Duration 8 weeks ROM Impairment pt shows very limited knee ROM 10- 65 only Short Term Goal (STG) pt will show increase R knee AROM to <5 degrees and > 100 degrees which allows her to stand up with even steps. 11/11/20: GOAL MET: 3-110 deg AROM. STG Duration GOAL MET Pbx Technician Goal (LTG) pt will show increase R knee AROM to <5 degrees and > 120 degrees which allows her to climb stairs with step over pattern 11/11/20: full knee extension and knee flexion to 115 LTG Duration 8 weeks (progressing 12/04/20/ ) LEFS Impairment pt scores 40 on LEFS Short Term Goal (STG) pt will show improved mobility and strength to be able to score <30 on LEFs excellent progress STG Duration 4 weeks Mcc Goal (LTG) pt will show improved mobility and strength to be able to score <20 on LEFs excellent progress LTG Duration 8 weeks Assessment Summary Assessment Ty is making great progress with her knee s/p her knee surgery. She is ambulating without an assitive device and pain is much reduced. There are nights when she is not needing her pain meds. She is still tight in her knee at end range flexion but has full knee extension. We are working towards her goal of step over step on the stairs and walking without a limp. Ty c/o tightness in the area of the ITB, lateral calf and hamstring attachments so I have also been working on releasing this area with MFR. Ty would benefit from continued PT Physical Therapy Plan Frequency and Duration Frequency of Treatment 2x/Week Duration of Treatment 8 weeks Plan of Care Start Date 12/04/20 Plan of Care End Date 01/29/21 Therapeutic Interventions Therapeutic Interventions Aquatic Therapy,Balance Training,Gait Training,Home Exercise Program,Joint Mobilizations,Manual Therapy, Neuromuscular Re-education, Patient/Caregiver Education, Self-Care/Home Management,Soft Tissue Mobilization,Taping, Therapeutic Activities, Therapeutic Exercises Modalities Cold Pack/Ice Massage,Electric Stimulation,Hot Packs, Infrared Therapy,Ultrasound Next Visit Focus/Plan Next Note Type Treatment Note Next Visit Plan continue progressing balance, strength, stairs and MFR/ stretching decreasing lateral hamstring/ITB tightness. Work towards full knee flexion
--- NOTE | 2020-12-08 18:00 | PT.OPPOC ---
Physical, Occupational & Speech Therapy At [facility] Current Diagnoses Unilateral primary osteoarthritis, right knee (12/04/20) Visit Care Team Role Provider Type Keeley Erickson PA-C Referring Provider Non-Staff Specialty: General Surgery Address: [address], [place], [address] Email: Annabel Fields MD Family Provider Physician Primary Care Provider Specialty: Family Practice Address: [address] [place] [address], [place], [address] Email: Attending Provider Specialty: Address: Phone: Fax: Email: Plan Of Care PT-OP-T Assessment and Plan Start: 10/20/20 13:48 Freq: Status: Active Protocol: Document 12/04/20 12:57 [facility] (Rec: 12/04/20 14:00 [facility] [id number]) Physical Therapy Assessment Goals balance Impairment pt is unable to stand on 1 LE Short Term Goal (STG) pt will be able to show improved balance and strength to amb with sPC. 11/11/20: goal met, walking without AD. STG Duration GOAL MET Cnc Operator Machinist Goal (LTG) pt will be able to show improved balance and strength to amb without AD and compensation signs 12/04/20 Ty is making steady progress ambulating with improved WB and decreased antalgic gait pattern. LTG Duration 8 weeks ROM Impairment pt shows very limited knee ROM 10- 65 only Short Term Goal (STG) pt will show increase R knee AROM to <5 degrees and > 100 degrees which allows her to stand up with even steps. 11/11/20: GOAL MET: 3-110 deg AROM. STG Duration GOAL MET Care Home Goal (LTG) pt will show increase R knee AROM to <5 degrees and > 120 degrees which allows her to climb stairs with step over pattern 11/11/20: full knee extension and knee flexion to 115 LTG Duration 8 weeks (progressing 12/04/20/ ) LEFS Impairment pt scores 40 on LEFS Short Term Goal (STG) pt will show improved mobility and strength to be able to score <30 on LEFs excellent progress STG Duration 4 weeks Cnc Operator Machinist Goal (LTG) pt will show improved mobility and strength to be able to score <20 on LEFs excellent progress LTG Duration 8 weeks Assessment Summary Assessment Ty is making great progress with her knee s/p her knee surgery. She is ambulating without an assistive device and pain is much reduced. There are nights when she is not needing her pain meds. She is still tight in her knee at end range flexion but has full knee extension. We are working towards her goal of step over step on the stairs and walking without a limp. Ty c/o tightness in the area of the ITB, lateral calf and hamstring attachments so I have also been working on releasing this area with MFR. Ty would benefit from continued PT Physical Therapy Plan Frequency and Duration Frequency of Treatment 2x/Week Duration of Treatment 8 weeks Plan of Care Start Date 12/04/20 Plan of Care End Date 01/29/21 Therapeutic Interventions Therapeutic Interventions Aquatic Therapy,Balance Training,Gait Training,Home Exercise Program,Joint Mobilizations,Manual Therapy, Neuromuscular Re-education, Patient/Caregiver Education, Self-Care/Home Management,Soft Tissue Mobilization,Taping, Therapeutic Activities, Therapeutic Exercises Modalities Cold Pack/Ice Massage,Electric Stimulation,Hot Packs, Infrared Therapy,Ultrasound Next Visit Focus/Plan Next Note Type Treatment Note Next Visit Plan continue progressing balance, strength, stairs and MFR/ stretching decreasing lateral hamstring/ITB tightness. Work towards full knee flexion Plan of Care Dates Plan of Care Start Date 12/04/20 Plan of Care End Date 01/29/21 Electronically Signed by: Radha Cristina, PT 12/08/20 1800 Please Sign and Return: I have reviewed this Plan of Care and certify that the skilled therapy services above are required to meet the patient?s needs. Physician Signature Date Printed Name and Credentials Clinical Instructor Signature Printed Name and Credentials
--- NOTE | 2020-12-18 12:00 | PT.OTN ---
Current Diagnoses Unilateral primary osteoarthritis, right knee (12/18/20) Physical Therapy Treatment Note PT-OP-A Visit Information Start: 10/20/20 13:48 Freq: Status: Active Protocol: Document 12/18/20 11:21 [facility] (Rec: 12/18/20 12:07 [facility] [id number]) Out-Patient Physical Therapy Visit Information Visit Information Visit Type Treatment Note Visit Start Time 11:18 Visit Stop Time 12:04 Total Visit Minutes 46 Visit Number PT-OP-B Current Condition Start: 10/20/20 13:48 Freq: Status: Active Protocol: Document 10/20/20 14:43 [facility] (Rec: 10/20/20 15:13 HH [email or web address]) Current Condition History of Current Condition Onset Date 10/13/20 Current Complaints unicompartmental R knee replacement (medial), difficulty in walking History of Current Condition yT is a 70yo female here with her today s/p POD 7 ( 10/13/20 )unicompartmental R knee replacement (medial) by jennifer Jean. Pt states she has been progressing well and able to walk around her house with a FWW. However, pt said she has not had any ROM / strengthening exercises given. She has been wearing compression leggings for swelling management. Pt is currently taking Aleve 3 times /day for pain control. Future Testing and Treatments Planned next f/u with surgeon 10/29/20 Current Functional Impairments (Reported) Functional Limitations- ADL's STS with staggered stance d/t limited knee flexion use of FWW for all mobility Functional Limitations- Other 2 STALIN from garage to home with railing on L and support in front. stair climbing with 2 rails ( step over pattern) PT-OP-C Subjective Start: 10/20/20 13:48 Freq: Status: Active Protocol: Document 12/18/20 11:21 [facility] (Rec: 12/18/20 12:07 [facility] [id number]) OP-PT Subjective Patient Comments Patient Comments she saw the surgeon and was at 115 degrees flexion he wants her at 120 stairs atre still a issue she hasnt taken any advil at night and is able to lay on her side now without discomfort. Patient Reported Progress Improving PT-OP-D Balance Start: 10/20/20 13:48 Freq: Status: Active Protocol: Document 10/20/20 14:43 HH (Rec: 10/20/20 15:13 [email or web address]) Balance Tests Single Limb Standing Single Limb- Right unable to test d/t pain PT-OP-G Mobility & Gait Start: 10/20/20 13:48 Freq: Status: Active Protocol: Document 10/20/20 14:43 [facility] (Rec: 10/20/20 15:13 HH [email or web address]) OP Mobility Evaluation Transfers Sit to Stand staggered stance, use of trunk forward lean to gain momentum and push off from walker OP Gait Assessment Assistive Devices Assistive Device Front Wheeled Walker Gait Deviations General Gait Pattern Antalgic,Decreased Stride Length,Decreased Feet Clearance,Step-to Gait Factors Limiting Gait Function Factors Limiting Gait Function Decreased Activity Tolerance, Decreased Strength, Incoordination,Limited Range of Motion,Pain,Poor Balance Comments Gait Comments mild R foot turn down man noted. lack of TKE during R stance phase Stair Climbing Evaluation Technique/Endurance Stair Climbing Direction Ascend and Descend Stair Climbing Technique Step Over Step Number of Steps Climbed 4 Stair Climbing Set # Repetitions (reps) 2 Comments Stair Climbing Comments pt primiarlly pulled from B handrails with a step over pattern. Unstable stance phase noted on R LE. Pt led with L to ascend and descend. PT-OP-K Range of Motion Start: 10/20/20 13:48 Freq: Status: Active Protocol: Document 10/20/20 14:43 [facility] (Rec: 10/20/20 15:13 [email or web address]) Knee Goniometric Range of Motion Knee Right Knee ROM WFL No Patient Position Supine Flexion Active (degrees) 63 Flexion Passive (degrees) 67 Extension Active (degrees) 10 Comments c/o tightness at incision site during knee flexion Left Knee ROM WFL Yes Flexion Active (degrees) 126 Extension Active (degrees) 0 Knee ROM Limitations Knee ROM Limitations Soft Tissue Tightness,Muscle Weakness,Muscle Tone,Pain, Swelling PT-OP-M Strength Start: 10/20/20 13:48 Freq: Status: Active Protocol: Document 10/20/20 14:43 HH (Rec: 10/20/20 15:13 [email or web address]) Knee Strength Knee Manual Muscle Testing Right Flexion (S2) 3+ Fair+ Extension (L3) 3+ Fair+ Left Flexion (S2) 5 Normal Extension (L3) 5 Normal PT-OP-Q Treatments Start: 10/20/20 13:48 Freq: Status: Active Protocol: Document 12/18/20 11:21 [facility] (Rec: 12/20/20 15:31 [facility] [email or web address]) Cardio Equipment Recumbent Bicycle Duration (Minutes) 10 Resistance 4 Seat Position 4 Gym Equipment Shuttle Recovery SL squat Details single leg squat Resistance 50# Shuttle Recovery Platform Stable Reps/Time 3 x10 reps at 50# Bilateral Squats Details bilateral squats Resistance 75# Shuttle Recovery Platform Stable Reps/Time 3 x 10 reps Therapeutic Exercises Prone Exercises prone quad stretch Reps/Minutes 1-2 reps holding 60 sec Comments pt given a thick theraband to do this stretch at home Standing Exercises standing squats Reps/Minutes x 20 reps Comments no hands needed standing alternating taps on the step Reps/Minutes 2 x 10 reps Comments improved foot clearance due to increased knee flexion ROM lateral step ups Reps/Minutes 2 x 10 Comments in parallel bars without hand support step up Equipment Used 4 inches Reps/Minutes 10x2 Comments in parallel bars without hand support single leg stance Reps/Minutes x 30 sec each leg Manual Therapy Treatment Soft Tissue Mobilization ITB MFR Mobilization Type Myofascial Release Body Position Sidelying Comments decreased tightness today and decreased tenderness with gusha instrument assisted MFR STM to lateral calf and lateral hamstring in prone Mobilization Type Myofascial Release Intensity/Depth Moderate Body Position Prone PT-OP-T Assessment and Plan Start: 10/20/20 13:48 Freq: Status: Active Protocol: Document 12/18/20 11:21 [facility] (Rec: 12/20/20 15:31 [facility] [email or web address]) Physical Therapy Assessment Assessment Summary Assessment Decreased tightness today at the ITB distal attachments, knee flexion is improving and pt is making gains with her balance and strength, I gave her the prone knee stretch with theraband to continue to work on end range flexion for home. Physical Therapy Plan Frequency and Duration Frequency of Treatment 2x/Week Duration of Treatment 8 weeks Plan of Care Start Date 12/04/20 Plan of Care End Date 01/29/21 Therapeutic Interventions Therapeutic Interventions Aquatic Therapy,Balance Training,Gait Training,Home Exercise Program,Joint Mobilizations,Manual Therapy, Neuromuscular Re-education, Patient/Caregiver Education, Self-Care/Home Management,Soft Tissue Mobilization,Taping, Therapeutic Activities, Therapeutic Exercises Modalities Cold Pack/Ice Massage,Electric Stimulation,Hot Packs, Infrared Therapy,Ultrasound Next Visit Focus/Plan Next Note Type Treatment Note Next Visit Plan continue progressing balance, strength, stairs and MFR/ stretching decreasing lateral hamstring/ITB tightness. Work towards full knee flexion
--- NOTE | 2020-12-25 11:46 | PT.OTN ---
Current Diagnoses Unilateral primary osteoarthritis, right knee (12/25/20) Physical Therapy Treatment Note PT-OP-A Visit Information Start: 10/20/20 13:48 Freq: Status: Active Protocol: Document 12/25/20 09:56 [facility] (Rec: 12/25/20 11:04 [facility] [id number]) Out-Patient Physical Therapy Visit Information Visit Information Visit Type Treatment Note Visit Start Time 09:45 Visit Stop Time 10:30 Total Visit Minutes 45 Visit Number 14 PT-OP-B Current Condition Start: 10/20/20 13:48 Freq: Status: Active Protocol: Document 10/20/20 14:43 [facility] (Rec: 10/20/20 15:13 HH [email or web address]) Current Condition History of Current Condition Onset Date 10/13/20 Current Complaints unicompartmental R knee replacement (medial), difficulty in walking History of Current Condition Ty is a 70yo female here with her today s/p POD 7 ( 10/13/20 )unicompartmental R knee replacement (medial) by jennifer Jean. Pt states she has been progressing well and able to walk around her house with a FWW. However, pt said she has not had any ROM / strengthening exercises given. She has been wearing compression leggings for swelling management. Pt is currently taking Aleve 3 times /day for pain control. Future Testing and Treatments Planned next f/u with surgeon 10/29/20 Current Functional Impairments (Reported) Functional Limitations- ADL's STS with staggered stance d/t limited knee flexion use of FWW for all mobility Functional Limitations- Other 2 STALIN from garage to home with railing on L and support in front. stair climbing with 2 rails ( step over pattern) PT-OP-C Subjective Start: 10/20/20 13:48 Freq: Status: Active Protocol: Document 12/25/20 09:56 [facility] (Rec: 12/25/20 11:04 [facility] [id number]) OP-PT Subjective Patient Comments Patient Comments pt did 35 min on the bike last night at level 7 but she was a little sore last night and had to take a IBU. Overall she feels like she is continuing to improve and her balance feels much better Patient Reported Progress Improving PT-OP-D Balance Start: 10/20/20 13:48 Freq: Status: Active Protocol: Document 10/20/20 14:43 HH (Rec: 10/20/20 15:13 HH [email or web address]) Balance Tests Single Limb Standing Single Limb- Right unable to test d/t pain PT-OP-G Mobility & Gait Start: 10/20/20 13:48 Freq: Status: Active Protocol: Document 10/20/20 14:43 [facility] (Rec: 10/20/20 15:13 HH [email or web address]) OP Mobility Evaluation Transfers Sit to Stand staggered stance, use of trunk forward lean to gain momentum and push off from walker OP Gait Assessment Assistive Devices Assistive Device Front Wheeled Walker Gait Deviations General Gait Pattern Antalgic,Decreased Stride Length,Decreased Feet Clearance,Step-to Gait Factors Limiting Gait Function Factors Limiting Gait Function Decreased Activity Tolerance, Decreased Strength, Incoordination,Limited Range of Motion,Pain,Poor Balance Comments Gait Comments mild R foot returned item clerk noted. lack of TKE during R stance phase Stair Climbing Evaluation Technique/Endurance Stair Climbing Direction Ascend and Descend Stair Climbing Technique Step Over Step Number of Steps Climbed 4 Stair Climbing Set # Repetitions (reps) 2 Comments Stair Climbing Comments pt primiarlly pulled from B handrails with a step over pattern. Unstable stance phase noted on R LE. Pt led with L to ascend and descend. PT-OP-K Range of Motion Start: 10/20/20 13:48 Freq: Status: Active Protocol: Document 10/20/20 14:43 [facility] (Rec: 10/20/20 15:13 [email or web address]) Knee Goniometric Range of Motion Knee Right Knee ROM WFL No Patient Position Supine Flexion Active (degrees) 63 Flexion Passive (degrees) 67 Extension Active (degrees) 10 Comments c/o tightness at incision site during knee flexion Left Knee ROM WFL Yes Flexion Active (degrees) 126 Extension Active (degrees) 0 Knee ROM Limitations Knee ROM Limitations Soft Tissue Tightness,Muscle Weakness,Muscle Tone,Pain, Swelling PT-OP-M Strength Start: 10/20/20 13:48 Freq: Status: Active Protocol: Document 10/20/20 14:43 HH (Rec: 10/20/20 15:13 HH [email or web address]) Knee Strength Knee Manual Muscle Testing Right Flexion (S2) 3+ Fair+ Extension (L3) 3+ Fair+ Left Flexion (S2) 5 Normal Extension (L3) 5 Normal PT-OP-Q Treatments Start: 10/20/20 13:48 Freq: Status: Active Protocol: Document 12/25/20 11:37 [facility] (Rec: 12/25/20 11:45 [facility] [id number]) Cardio Equipment Recumbent Bicycle Duration (Minutes) 8 Resistance 4 Seat Position 4 Gym Equipment Shuttle Recovery SL squat Details single leg squat Resistance 50# Shuttle Recovery Platform Stable Reps/Time 3 x10 reps at 50# Bilateral Squats Details bilateral squats Resistance 75# Shuttle Recovery Platform Stable Reps/Time 3 x 10 reps Therapeutic Exercises Supine Exercises bridges Reps/Minutes 2 x 10 reps Prone Exercises prone quad stretch Reps/Minutes 1-2 reps holding 60 sec Comments with manual resistance Standing Exercises standing balance on BOSU Reps/Minutes double and single leg balance step ups on BOSU Reps/Minutes 2 x 10 lateral step ups Reps/Minutes 2 x 10 Comments in parallel bars without hand support step up Equipment Used 4 inches Reps/Minutes 10x2 Comments at stairs standing calf stretch Reps/Minutes 60 seconds Comments pt used ALEC[employer] and also shown standing calf stretch for home Other Exercises hands and knees rock backs Reps/Minutes x 1 min Comments pt to start working on hands and knees on her bed at home Manual Therapy Treatment Soft Tissue Mobilization STM to lateral calf and lateral hamstring in prone Mobilization Type Myofascial Release Intensity/Depth Moderate Body Position Prone PT-OP-T Assessment and Plan Start: 10/20/20 13:48 Freq: Status: Active Protocol: Document 12/25/20 11:37 [facility] (Rec: 12/25/20 11:45 [facility] [id number]) Physical Therapy Assessment Assessment Summary Assessment Ty measured 119 today with knee flexion, I started her with a hands and knee position today and she tolerated this really well. We tried some gentle rock backs in this positions. She will work with a hand and knee position for home as well. Stairs look improved today. Physical Therapy Plan Frequency and Duration Frequency of Treatment 2x/Week Duration of Treatment 8 weeks Plan of Care Start Date 12/04/20 Plan of Care End Date 01/29/21 Therapeutic Interventions Therapeutic Interventions Aquatic Therapy,Balance Training,Gait Training,Home Exercise Program,Joint Mobilizations,Manual Therapy, Neuromuscular Re-education, Patient/Caregiver Education, Self-Care/Home Management,Soft Tissue Mobilization,Taping, Therapeutic Activities, Therapeutic Exercises Modalities Cold Pack/Ice Massage,Electric Stimulation,Hot Packs, Infrared Therapy,Ultrasound Next Visit Focus/Plan Next Note Type Treatment Note Next Visit Plan continue progressing balance, strength, stairs and MFR/ stretching decreasing lateral hamstring/ITB tightness. Work towards full knee flexion
--- NOTE | 2021-01-08 13:23 | PT.OTN ---
Current Diagnoses Unilateral primary osteoarthritis, right knee (01/08/21) Physical Therapy Treatment Note PT-OP-A Visit Information Start: 10/20/20 13:48 Freq: Status: Active Protocol: Document 01/08/21 09:45 [facility] (Rec: 01/13/21 13:23 [facility] [email or web address]) Out-Patient Physical Therapy Visit Information Visit Information Visit Type Treatment Note Visit Start Time 09:45 Visit Stop Time 10:30 Total Visit Minutes 45 Visit Number 15 PT-OP-B Current Condition Start: 10/20/20 13:48 Freq: Status: Active Protocol: Document 10/20/20 14:43 [facility] (Rec: 10/20/20 15:13 HH [email or web address]) Current Condition History of Current Condition Onset Date 10/13/20 Current Complaints unicompartmental R knee replacement (medial), difficulty in walking History of Current Condition Ty is a 70yo female here with her today s/p POD 7 ( 10/13/20 )unicompartmental R knee replacement (medial) by jennifer Jean. Pt states she has been progressing well and able to walk around her house with a FWW. However, pt said she has not had any ROM / strengthening exercises given. She has been wearing compression leggings for swelling management. Pt is currently taking Aleve 3 times /day for pain control. Future Testing and Treatments Planned next f/u with surgeon 10/29/20 Current Functional Impairments (Reported) Functional Limitations- ADL's STS with staggered stance d/t limited knee flexion use of FWW for all mobility Functional Limitations- Other 2 STALIN from garage to home with railing on L and support in front. stair climbing with 2 rails ( step over pattern) PT-OP-C Subjective Start: 10/20/20 13:48 Freq: Status: Active Protocol: Document 01/08/21 09:45 [facility] (Rec: 01/13/21 13:23 [facility] [email or web address]) OP-PT Subjective Patient Comments Patient Comments pt reports she is doing really well, feels better with stairs and pain levels. She is feeling ready to DC PT after todays visit PT-OP-D Balance Start: 10/20/20 13:48 Freq: Status: Active Protocol: Document 10/20/20 14:43 [facility] (Rec: 10/20/20 15:13 HH [email or web address]) Balance Tests Single Limb Standing Single Limb- Right unable to test d/t pain PT-OP-G Mobility & Gait Start: 10/20/20 13:48 Freq: Status: Active Protocol: Document 10/20/20 14:43 [facility] (Rec: 10/20/20 15:13 [email or web address]) OP Mobility Evaluation Transfers Sit to Stand staggered stance, use of trunk forward lean to gain momentum and push off from walker OP Gait Assessment Assistive Devices Assistive Device Front Wheeled Walker Gait Deviations General Gait Pattern Antalgic,Decreased Stride Length,Decreased Feet Clearance,Step-to Gait Factors Limiting Gait Function Factors Limiting Gait Function Decreased Activity Tolerance, Decreased Strength, Incoordination,Limited Range of Motion,Pain,Poor Balance Comments Gait Comments mild R foot nocturnist physician noted. lack of TKE during R stance phase Stair Climbing Evaluation Technique/Endurance Stair Climbing Direction Ascend and Descend Stair Climbing Technique Step Over Step Number of Steps Climbed 4 Stair Climbing Set # Repetitions (reps) 2 Comments Stair Climbing Comments pt primiarlly pulled from B handrails with a step over pattern. Unstable stance phase noted on R LE. Pt led with L to ascend and descend. PT-OP-K Range of Motion Start: 10/20/20 13:48 Freq: Status: Active Protocol: Document 10/20/20 14:43 [facility] (Rec: 10/20/20 15:13 [email or web address]) Knee Goniometric Range of Motion Knee Right Knee ROM WFL No Patient Position Supine Flexion Active (degrees) 63 Flexion Passive (degrees) 67 Extension Active (degrees) 10 Comments c/o tightness at incision site during knee flexion Left Knee ROM WFL Yes Flexion Active (degrees) 126 Extension Active (degrees) 0 Knee ROM Limitations Knee ROM Limitations Soft Tissue Tightness,Muscle Weakness,Muscle Tone,Pain, Swelling PT-OP-M Strength Start: 10/20/20 13:48 Freq: Status: Active Protocol: Document 10/20/20 14:43 [facility] (Rec: 10/20/20 15:13 [email or web address]) Knee Strength Knee Manual Muscle Testing Right Flexion (S2) 3+ Fair+ Extension (L3) 3+ Fair+ Left Flexion (S2) 5 Normal Extension (L3) 5 Normal PT-OP-Q Treatments Start: 10/20/20 13:48 Freq: Status: Active Protocol: Document 01/08/21 09:45 [facility] (Rec: 01/13/21 13:23 [facility] [email or web address]) Cardio Equipment Recumbent Bicycle Duration (Minutes) 8 Resistance 4 Seat Position 4 Gym Equipment Shuttle Recovery SL squat Details single leg squat Resistance 50# Shuttle Recovery Platform Stable Reps/Time 3 x10 reps at 50# Bilateral Squats Details bilateral squats Resistance 100# Shuttle Recovery Platform Stable Reps/Time 3 x 10 reps Therapeutic Exercises Standing Exercises standing squats Reps/Minutes x 20 reps Comments no hands needed, excellent form standing alternating taps on the step Reps/Minutes 2 x 10 reps Comments improved foot clearance due to increased knee flexion ROM lateral step ups Reps/Minutes 2 x 10 Comments in parallel bars without hand support step up Equipment Used 4 inches Reps/Minutes 10x2 Comments at stairs Manual Therapy Treatment Soft Tissue Mobilization ITB MFR Mobilization Type Myofascial Release Body Position Sidelying Comments decreased tightness today and decreased tenderness with gusha instrument assisted MFR STM to lateral calf and lateral hamstring in prone Mobilization Type Myofascial Release Intensity/Depth Moderate Body Position Prone PT-OP-T Assessment and Plan Start: 10/20/20 13:48 Freq: Status: Active Protocol: Document 01/08/21 09:45 [facility] (Rec: 01/13/21 13:23 [facility] [email or web address]) Physical Therapy Assessment Goals balance Impairment pt is unable to stand on 1 LE Short Term Goal (STG) pt will be able to show improved balance and strength to amb with sPC. 01/08/21 goal met STG Duration GOAL MET LTG Duration 8 weeks ROM Impairment pt shows very limited knee ROM 10- 65 only Short Term Goal (STG) pt will show increase R knee AROM to <5 degrees and > 100 degrees which allows her to stand up with even steps. 11/11/20: GOAL MET: 3-110 deg AROM. STG Duration GOAL MET [employer] Goal (LTG) pt will show increase R knee AROM to <5 degrees and > 120 degrees which allows her to climb stairs with step over pattern 01/08/21: full knee extension and knee flexion to 120 LTG Duration 8 weeks (progressing 12/04/20/ ) LEFS Impairment pt scores 40 on LEFS Short Term Goal (STG) pt will show improved mobility and strength to be able to score <30 on LEFs goal met STG Duration 4 weeks [employer] Goal (LTG) pt will show improved mobility and strength to be able to score <20 on LEf's goal met LTG Duration 8 weeks Progress Towards Goals Progress Towards Goals Goals Met Assessment Summary Assessment Ty is at 120 deg flexion, she is doing great with her home exercises program and feels much stronger. She has met her goals and will be discharged to a [facility] Physical Therapy Plan Discharge Physical Therapy Discharge Reasons Goals Met
== END 2021-03-24 08:42 ==
LOC: PHYS 09:45
PROVIDERS: Family Provider Family Medicine; PCP Family Medicine; Referring Provider Physician Assistant
DX: M17.11 Unilateral primary osteoarthritis, right knee (principal)
CPT/HCPCS: 97110; 97112; 97116; 97140; 97161; 97535

== ENCOUNTER → 2021-12-03 08:10 | Outpatient (CLI) | payer MEDICARE, SELFPAY ==
--- NOTE | 2021-12-03 | DI.MG.S_ITS ---
BILATERAL DIGITAL SCREENING MAMMOGRAM 3D/2D WITH CAD: 12/03/2021 CLINICAL: Routine screening. Family history of breast cancer. Comparison is made to exams dated: 08/01/2020 mammogram, 03/23/2019 mammogram, and 08/11/2017 mammogram - [facility]. There are scattered areas of fibroglandular density in both breasts (category b / 25%-50% glandular tissue). Current study was also evaluated with a Computer Aided Detection (CAD) system. No significant masses, calcifications, or other findings are seen in either breast. There has been no significant interval change. IMPRESSION: NEGATIVE There is no mammographic evidence of malignancy. A 1 year screening mammogram is recommended. Based on the Tyrer Cuzick model (a risk assessment model) the patient's lifetime risk is 2.7% and her 10 year risk is 1.9%. According to the ACR, ACS, and NCCN guidelines, an annual breast MRI exam along with mammogram is recommended if the patient's lifetime risk is 20% or greater. This exam was interpreted at Station ID: [id number]. NOTE: For mammograms, a report in lay terms will be sent to the patient. Approximately 15% of breast malignancies will not be visualized mammographically. In the management of a palpable breast mass, a negative mammogram must not discourage biopsy of a clinically suspicious lesion. Electronically Signed By: Giovany Cobb M.D., jr/kristen:12/03/2021 12:33:12 letter sent: Normal Exam ACR BI-RADS Category 1: Negative [id number]
== END ==
PROVIDERS: Family Provider Family Medicine; PCP Family Medicine; Referring Provider Family Medicine; Visit Provider Family Medicine
DX: Z12.31 Encounter for screening mammogram for malignant neoplasm of breast (principal); Z80.3 Family history of malignant neoplasm of breast
CPT/HCPCS: 77063; 77067

== ENCOUNTER → 2022-08-20 13:04 | Outpatient (CLI) | payer MEDICARE, SELFPAY ==
--- NOTE | 2022-08-20 | DI.RAD.S_ITS ---
PROCEDURE: XR LUMBAR SPINE 2-3V INDICATIONS: Stable burst fracture of unspecified lumbar vertebra, subseq TECHNIQUE: 3 views of the lumbar spine were acquired. COMPARISON: None. FINDINGS: Bones: 5 [id number] vertebrae are present. There is loss of normal lumbar lordosis. There is moderate age-indeterminate wedging of L4. Multilevel disc space narrowing and endplate osteophyte formation. No suspicious bony lesions. Soft tissues: Overlying bowel gas pattern is normal. No suspicious soft tissue calcifications. IMPRESSION: L4 compression fracture of uncertain acuity. Initial further assessment with MRI is recommended. Dictated by: Geeta Tuttle M.D. on 08/20/2022 at 14:36 Transcribed by: CAMPBELL on 08/20/2022 at 14:37 Approved by: Geeta Tuttle M.D. on 08/20/2022 at 16:18
== END ==
PROVIDERS: Family Provider Family Medicine; PCP Family Medicine; Referring Provider Family Medicine; Visit Provider Family Medicine
DX: S32.001D Stable burst fracture of unspecified lumbar vertebra, subsequent encounter for fracture with routine healing (principal); X58.XXXD Exposure to other specified factors, subsequent encounter
CPT/HCPCS: 72100

== ENCOUNTER → 2023-01-11 12:03 | Outpatient (CLI) | payer MEDICARE, SELFPAY ==
--- NOTE | 2023-01-11 | DI.RAD.S_ITS ---
Bone Density Report Name: OUMAR MOLINA Age: 72 Sex: Female Ethnicity: White Date of : 1950 Indication: postmenopausal; screening for osteoporosis; prior fracture; Referring Provider: TILA VILLAGOMEZ Study: Bone densitometry was performed. Exam Date: January 11, 2023 Accession number: [id number] Bone Density: Region BMD T-score Z-score Classification AP Spine(L1, L2, L4) 1.031 0.0 2.2 Normal Femoral Neck (Left) 0.739 -1.0 1.0 Normal Total Hip (Left) 0.885 -0.5 1.2 Normal Femoral Neck (Right) 0.696 -1.4 0.6 Osteopenia Total Hip (Right) 0.822 -1.0 0.7 Normal Total Hip Mean 0.854 -0.8 1.0 Normal World Health Organization criteria for BMD impression classify patients as: Normal (T-score at or above -1.0), Osteopenia (T-score between -1.0 and -2.5), or Osteoporosis (T-score at or below -2.5). 10-year Fracture Risk: FRAX not reported because: Prior hip or vertebral fracture Previous Exams: -- Region Exam Age BMD T-score BMD Change BMD Change Date g/cm2 vs Baseline vs Previous -- AP Spine (L1-L2,L4) 01/11/2023 72 1.031 0.0 0.002 (0.1%)# 0.002 (0.1%)# 04/02/2019 69 1.030 0.0 Total Hip(Left) 01/11/2023 72 0.885 -0.5 -0.043 (-4.7%)# -0.043 (-4.7%)# 04/02/2019 69 0.928 -0.1 Total Hip(Right) 01/11/2023 72 0.822 -1.0 -0.023 (-2.8%)# -0.023 (-2.8%)# 04/02/2019 69 0.846 -0.8 -- *Denotes significance at 95% confidence level, LSC for AP Spine = 0.022 g/cm2, LSC for Total Hip = 0.027 g/cm2 # Denotes dissimilar scan types or analysis methods Impression: The patient has low bone mass, based on the Right Femoral Neck T-score. The patient has risk factors, including: previous fracture. No significant bone loss was observed. Discussion: INCREASED RISK OF FRACTURE DUE TO HISTORY OF FRACTURE. The patient's previous fracture puts the patient at high risk of a future fracture. In untreated patients, the risk of osteoporotic fracture increases approximately two-fold for each 1.0 SD decrease in T-score. Low bone density is not the only risk factor for fracture; also consider factors such as patient's age, frailty or poor health, risk of falling, risk of injury, previous osteoporotic fracture, family history of osteoporosis, cigarette smoking, low body weight, etc. Not everyone with a low trauma fracture has osteoporosis; osteomalacia and other metabolic bone disorders should also be considered. Patients who have osteoporosis should be evaluated for specific diseases and conditions (secondary causes) that may cause or contribute to bone loss and fracture risk. National Osteoporosis Foundation (NOF) recommends pharmacologic intervention for patients with a prior hip or vertebral fracture regardless of BMD T-score. The patient should follow a healthful lifestyle (good nutrition with adequate calcium and vitamin D, and appropriate weight-bearing exercise). Follow-Up: Consider a repeat BMD and Vertebral Fracture Assessment (VFA) exam in 2 years or sooner if medically necessary, to reassess this patient's status. Reported by: XU THOMPSON M.D. on 01/11/2023 12:49:00 PM.
== END ==
PROVIDERS: Family Provider Family Medicine; PCP Family Medicine; Referring Provider Family Medicine; Visit Provider Family Medicine
DX: Z78.0 Asymptomatic menopausal state (principal); M85.851 Other specified disorders of bone density and structure, right thigh
CPT/HCPCS: 77080

== ENCOUNTER → 2023-02-23 15:18 | Outpatient (CLI) | payer MEDICARE, SELFPAY ==
--- NOTE | 2023-02-23 | DI.RAD.S_ITS ---
PROCEDURE: XR LUMBAR SPINE 2-3V INDICATIONS: FOLLOW UP/ PAIN TECHNIQUE: 3 views of the lumbar spine were acquired. COMPARISON: [facility], CR, XR LUMBAR SPINE 2-3V, 08/20/2022, 13:02. FINDINGS: Bones: 5 [id number] vertebrae are present. There is normal bony alignment. Chronic severe L4 superior endplate compression fracture. Chronic minimal superior endplate compression fracture of T12. No acute compression fractures. No suspicious bony lesions. Lower lumbar facet arthropathy. Discogenic osteophytes at multiple levels. Soft tissues: Overlying bowel gas pattern is normal. No suspicious soft tissue calcifications. IMPRESSION: 1. Chronic compression fractures. No acute compression fracture. 2. Degenerative change. Dictated by: Francesco Tolliver M.D. on 02/23/2023 at 19:49 Approved by: Francesco Tolliver M.D. on 02/23/2023 at 19:50
== END ==
PROVIDERS: Family Provider Family Medicine; PCP Family Medicine; Referring Provider Orthopaedic Surgery; Visit Provider Orthopaedic Surgery
DX: S32.001D Stable burst fracture of unspecified lumbar vertebra, subsequent encounter for fracture with routine healing (principal); M47.816 Spondylosis without myelopathy or radiculopathy, lumbar region
CPT/HCPCS: 72100

== ENCOUNTER → 2023-03-12 09:57 | Outpatient (CLI) | payer MEDICARE, SELFPAY ==
--- NOTE | 2023-03-12 09:58 | DI.MG.S_ITS ---
BILATERAL DIGITAL SCREENING MAMMOGRAM 3D/2D WITH CAD: 03/12/2023 CLINICAL: Routine screening. Family history of breast cancer. Comparison is made to exams dated: 12/03/2021 mammogram, 08/01/2020 mammogram, and 03/23/2019 mammogram - [facility]. There are scattered areas of fibroglandular density in both breasts (category b / 25%-50% glandular tissue). Current study was also evaluated with a Computer Aided Detection (CAD) system. No significant masses, calcifications, or other findings are seen in either breast. There has been no significant interval change. IMPRESSION: NEGATIVE There is no mammographic evidence of malignancy. A 1 year screening mammogram is recommended. Based on the Tyrer Cuzick model (a risk assessment model) the patient's lifetime risk is 2.4% and her 10 year risk is 2.0%. According to the ACR, ACS, and NCCN guidelines, an annual breast MRI exam along with mammogram is recommended if the patient's lifetime risk is 20% or greater. This exam was interpreted at Station ID: [id number]. NOTE: For mammograms, a report in lay terms will be sent to the patient. Approximately 15% of breast malignancies will not be visualized mammographically. In the management of a palpable breast mass, a negative mammogram must not discourage biopsy of a clinically suspicious lesion. Electronically Signed By: Ulises shepherd/kristen:03/14/2023 08:04:32 letter sent: Normal Exam ACR BI-RADS Category 1: Negative [id number]
== END ==
PROVIDERS: Family Provider Family Medicine; PCP Family Medicine; Referring Provider Family Medicine; Visit Provider Family Medicine
DX: Z12.31 Encounter for screening mammogram for malignant neoplasm of breast (principal); Z80.3 Family history of malignant neoplasm of breast; R92.323 Mammographic fibroglandular density, bilateral breasts
CPT/HCPCS: 77063; 77067

== ENCOUNTER → 2023-04-27 08:45 | Outpatient (CLI) | payer MEDICARE, SELFPAY ==
--- NOTE | 2023-04-27 | DI.US.S_ITS ---
PROCEDURE: US ABDOMEN COMPLETE INDICATIONS: Elevated alkaline phosphatase level TECHNIQUE: Real-time scanning was performed of the abdominal and retroperitoneal organs, with image documentation. COMPARISON: None. FINDINGS: Liver: Liver is normal in size and homogeneous in echotexture. Gallbladder: No stones. Wall thickness measures 1.9 mm. Biliary ducts: Intrahepatic bile ducts are non-dilated. Extrahepatic bile duct caliber measures 4.7 mm. Normal is 6-7 mm or less in diameter, or 10 mm or less post-cholecystectomy. Pancreas: Visualized portions of the pancreas are sonographically normal. Spleen: Spleen is normal in size and homogeneous in echotexture. Kidneys: Kidneys are normal in size and echotexture. Right kidney measures 11.1 cm long; left kidney measures 10.3 cm long. No hydronephrosis or nephrolithiasis. No solid masses. Aorta: Visualized aorta is normal in caliber at less than 3 cm. Iliacs: Proximal common iliac arteries are normal in caliber at less than 2.5 cm. IVC: Intrahepatic inferior vena cava is patent. Miscellaneous: No free abdominal fluid. IMPRESSION: Unremarkable exam. Dictated by: Laurie Bunch M.D. on 04/27/2023 at 14:53 Approved by: Laurie Bunch M.D. on 04/27/2023 at 14:55
== END ==
LOC: US 08:46
PROVIDERS: Family Provider Family Medicine; PCP Family Medicine; Referring Provider Family Medicine; Visit Provider Family Medicine
DX: R74.8 Abnormal levels of other serum enzymes (principal)
CPT/HCPCS: 76700

== ENCOUNTER → 2024-03-13 16:00 | Outpatient (CLI) | payer MEDICARE, SELFPAY ==
--- NOTE | 2024-03-13 16:01 | DI.MG.S_ITS ---
BILATERAL DIGITAL SCREENING MAMMOGRAM 3D/2D WITH CAD: 03/13/2024 CLINICAL: Routine screening. Family history of breast cancer. Comparison is made to exams dated: 03/12/2023 mammogram, 12/03/2021 mammogram, and 08/01/2020 mammogram - [facility]. There are scattered areas of fibroglandular density (category b / 25%-50% glandular tissue). Current study was also evaluated with a Computer Aided Detection (CAD) system. No significant masses, calcifications, or other findings are seen in either breast. There has been no significant interval change. IMPRESSION: NEGATIVE There is no mammographic evidence of malignancy. A 1 year screening mammogram is recommended. Based on the Tyrer Cuzick model (a risk assessment model) the patient's lifetime risk is 2.2% and her 10 year risk is 2.0%. According to the ACR, ACS, and NCCN guidelines, an annual breast MRI exam along with mammogram is recommended if the patient's lifetime risk is 20% or greater. This exam was interpreted at Station ID: [id number]. NOTE: For mammograms, a report in lay terms will be sent to the patient. Approximately 15% of breast malignancies will not be visualized mammographically. In the management of a palpable breast mass, a negative mammogram must not discourage biopsy of a clinically suspicious lesion. Electronically Signed By: Ulises shepherd/kristen:03/14/2024 17:02:42 letter sent: Normal Exam ACR BI-RADS Category 1: Negative
== END ==
PROVIDERS: Family Provider Family Medicine; PCP Family Medicine; Referring Provider Family Medicine; Visit Provider Family Medicine
DX: Z12.31 Encounter for screening mammogram for malignant neoplasm of breast (principal); Z80.3 Family history of malignant neoplasm of breast
CPT/HCPCS: 77063; 77067